=== PATIENT | female | born 1930 | race African-American/Black ===

== ENCOUNTER 2017-04-13 10:25 | Emergency (ER) | payer MEDICARE, BC ==
[2017-04-13] MEDS ORDERED: Mag-Al 1200 mg/1200 mg/30 ML UDCUP ONE (10:53)
[2017-04-13] MEDS ORDERED: Famotidine 20 MG TAB ONE (10:53)
[2017-04-13] MEDS ORDERED: Lidocaine Viscous Sol 2% 15 ml UD Cup ONE (10:53)
[2017-04-13 11:16] LABS: #Basophils 0.1 thou/uL (0.0-0.2); #Eosinphils 0.1 thou/uL (0.0-0.7); #Lymphocytes 1.8 thou/uL (1.20-3.40); #Monocytes 0.4 thou/uL (0.11-0.59); #Neutrophils 2.9 thou/uL (1.40-6.50); %Basophils 1.9 % (0.0-1.0); %Eosinophils 2.3 % (0.0-10.0); %Lymphocytes 33.5 % (21.0-51.0); %Monocytes 6.9 % (0.0-10.0); Hematocrit 46.3 % (36.0-47.0); Mean Platelet Volume 11.8 fL (7.4-10.4); Red Blood Cell (RBC) Count 5.24 mill/uL (4.20-5.40); White Blood Cell (WBC) Count 5.3 thou/uL (4.8-10.8)
[2017-04-13 11:51] LABS: ALT (SGPT) 14 U/L (8-55); AST (SGOT) 18 U/L (5-34); Alkaline Phosphatase 87 U/L (40-150); Anion Gap 16 mmol/L (10-20); BUN (Urea Nitrogen) 22 mg/dL (9.8-20.1); Bilirubin, Total 1.6 mg/dL (0.2-1.2); Calc. Creatinine Clearance 0 mL/min (70-130); Calcium 9.4 mg/dL (7.8-10.44); Carbon Dioxide 17 mmol/L (23-31); Chloride 108 mmol/L (98-107); Estimated GFR-MDRD 53; Globulin 3.7 g/dL (2.4-3.5); Lipase 10 U/L (8-78); Protein, Total 7.3 g/dL (6.0-8.3)
== END 2017-04-13 12:54 | disposition home or self-care (01) ==
LOC: ERS 10:25
DX: K21.9 Gastro-esophageal reflux disease without esophagitis (principal); I11.0 Hypertensive heart disease with heart failure; I50.9 Heart failure, unspecified; Z87.891 Personal history of nicotine dependence
CPT/HCPCS: 36415; 80053; 83690; 85025; 99284

== ENCOUNTER 2017-04-17 03:00 | Observation (INO) | payer MEDICARE, BC ==
[2017-04-17] MEDS ORDERED: Furosemide 40 MG/4 ML VIAL ONE (03:57)
[2017-04-17] MEDS ORDERED: Mag-Al 1200 mg/1200 mg/30 ML UDCUP ONE (03:57)
[2017-04-17] MEDS ORDERED: Pantoprazole 40 MG VIAL ONE (03:58)
[2017-04-17] MEDS ORDERED: Lidocaine Viscous Sol 2% 15 ml UD Cup ONE (03:58)
[2017-04-17 04:04] LABS: ALT (SGPT) 15 U/L (8-55); AST (SGOT) 20 U/L (5-34); Alkaline Phosphatase 103 U/L (40-150); Anion Gap 16 mmol/L (10-20); BUN (Urea Nitrogen) 26 mg/dL (9.8-20.1); Bilirubin, Total 2.1 mg/dL (0.2-1.2); CK (CPK) 48 U/L (29-168); Calc. Creatinine Clearance 0 mL/min (70-130); Calcium 9.3 mg/dL (7.8-10.44); Carbon Dioxide 23 mmol/L (23-31); Chloride 105 mmol/L (98-107); Estimated GFR-MDRD 44; Globulin 3.8 g/dL (2.4-3.5); Lipase 12 U/L (8-78); Protein, Total 7.3 g/dL (6.0-8.3)
[2017-04-17 04:10] LABS: PTT 35.1 SEC (22.9-36.1); Prothrombin Time 17.1 SEC (12.0-14.7)
[2017-04-17 04:17] LABS: #Basophils 0.1 thou/uL (0.0-0.2); #Eosinphils 0.2 thou/uL (0.0-0.7); #Lymphocytes 1.4 thou/uL (1.20-3.40); #Monocytes 0.4 thou/uL (0.11-0.59); #Neutrophils 3.2 thou/uL (1.40-6.50); %Basophils 1.2 % (0.0-1.0); %Eosinophils 2.9 % (0.0-10.0); %Lymphocytes 27.4 % (21.0-51.0); %Monocytes 6.9 % (0.0-10.0); Hematocrit 44.2 % (36.0-47.0); Mean Platelet Volume 12.9 fL (7.4-10.4); Red Blood Cell (RBC) Count 4.96 mill/uL (4.20-5.40); White Blood Cell (WBC) Count 5.3 thou/uL (4.8-10.8)
[2017-04-17 04:20] LABS: Troponin I 0.067 ng/mL (< 0.028)
[2017-04-17] MEDS ORDERED: Nitroglycerin 2% Ointment 1 INCH/1 GM Packet ONE (05:14)
[2017-04-17 06:43] VITALS: BMI 39.4
[2017-04-17 07:24] LABS: Troponin I 0.084 ng/mL (< 0.028)
[2017-04-17] MEDS ORDERED: Milk Of Magnesia 30 ML UDCUP PO PRN (08:10)
[2017-04-17] MEDS ORDERED: Mag-Al 1200 mg/1200 mg/30 ML UDCUP PO PRN (08:10)
[2017-04-17] MEDS ORDERED: Acetaminophen 325 MG TAB PO PRN (08:10)
[2017-04-17] MEDS ORDERED: Zolpidem Tartrate 5 MG TAB PO PRN (08:10)
[2017-04-17] MEDS ORDERED: Ondansetron ODT 4 MG TAB PO PRN (08:10)
[2017-04-17] MEDS ORDERED: Ondansetron HCl/PF 4 MG/2 ML Vial IVP PRN (08:10)
[2017-04-17] MEDS ORDERED: Senokot 8.6 MG TAB PO PRN (08:10)
[2017-04-17] MEDS ORDERED: Loperamide HCl 2 MG CAP PO PRN (08:10)
[2017-04-17] MEDS ORDERED: Azelastine 137 MCG/Spray 30 ML NS PRN ×2 (08:13→08:30)
[2017-04-17] MEDS ORDERED: Non-Formulary Item 1 EACH (Tizanidine Hcl [Zanaflex] 4 MG) PO PRN (08:13)
[2017-04-17] MEDS ORDERED: Calamine/Zinc Oxide 177 ML LOTION TP PRN (08:13)
[2017-04-17] MEDS ORDERED: Topiramate 100 MG TAB PO PRN (08:13)
[2017-04-17] MEDS ORDERED: ALPRAZolam 0.5 MG TAB PO PRN (08:13)
[2017-04-17] MEDS ORDERED: Nortriptyline HCl 25 MG CAP PO PRN (08:13)
--- NOTE | 2017-04-17 08:29 | RAD ---
SINGLE VIEW OF THE CHEST: HISTORY: Abdominal pain for a week. Fluid retention for three days. COMPARISON: 03/14/2017 FINDINGS: A single view of the chest shows an enlarged cardiomediastinal silhouette, which is stable in size. The pacemaker is unchanged in position. There is no evidence of consolidation, mass, or pleural ef fusion. IMPRESSION: No evidence of acute cardiopulmonary disease. POS: [facility]
[2017-04-17] MEDS ORDERED: tiZANidine HCl 4 MG TAB PO PRN (08:35)
[2017-04-17] MEDS: busPIRone HCl 5 MG TAB PO SCH ×2 (09:05→19:39)
[2017-04-17] MEDS: Carvedilol 6.25 MG TAB PO SCH ×2 (09:05→19:39)
[2017-04-17] MEDS: Metolazone 5 MG TAB PO SCH (09:05)
[2017-04-17] MEDS: Spironolactone 25 MG TAB PO SCH (09:06)
[2017-04-17 10:07] LABS: Troponin I 0.071 ng/mL (< 0.028)
--- NOTE | 2017-04-17 10:14 | HP ---
PRIMARY CARE PHYSICIAN: Dr. Nick Hardwick REASON FOR ADMISSION: Acute on chronic systolic and diastolic congestive heart failure. HISTORY OF PRESENT ILLNESS: An 86-year-old female who was recently admitted in our hospital on 03/07. This patient has underlying history of systolic and diastolic heart failure. Most recent e chocardiography on 01/2017 showed EF 30-35%, grade /3 diastolic dysfunction severe mitral regurgita tion and moderate tricuspid regurgitation. She came to the emergency room last night with increasin g shortness of breath, increasing lower extremity edema. The patient was feeling weight gain and sh e was feeling congested as well as fluid retention. The patient reports that she went out of town a nd she did not take her Lasix and she started feeling increasing edema in her legs. The patient was also having congestion in the upper abdomen and she was feeling nausea. She denies any vomiting. She denies any constipation or diarrhea, but after food she was feeling a little bit bloating and ep igastric discomfort. The patient also noticed more swollen legs and she also gained weight. She de nies any chest pain, orthopnea, or PND. She denies any palpitation, dizziness or syncope. She keshia es any UTI symptoms. She denies any melena, hematochezia. REVIEW OF SYSTEMS: The following complete review of systems was negative, unless otherwise mentioned in the HPI or below: Constitutional: Weight loss or gain, ability to conduct usual activities. Skin: Rash, itching. Eyes: Double vision, pain. ENT/Mouth: Nose bleeding, neck stiffness, pain, tenderness. Cardiovascular: Palpitations, dyspnea on exertion, orthopnea. Respiratory: Shortness of breath, wheezing, cough, hemoptysis, fever or night sweats. Gastrointestinal: Poor appetite, abdominal pain, heartburn, nausea, vomiting, constipation, or diarrhea. Genitourinary: Urgency, frequency, dysuria, nocturia. Musculoskeletal: Pain, swelling. Neurologic/Psychiatric: Anxiety, depression. Allergy/Immunologic: Skin rash, bleeding tendency. Please see my HPI for pertinent positive and negative. All other review of systems reviewed and neg ative except as mentioned in the HPI. 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 PAST PSYCHIATRIC HISTORY: Anxiety and depression. PAST SURGICAL HISTORY: Abdominal hysterectomy, bilateral salpingo-oophorectomy, left total hip arth roplasty, right total knee arthroplasty in 2006 and then left total knee replacement in 2008, catara ct surgery in the right eye, cholecystectomy in 1998, incisional hernia repair in 1998, bilateral kn ee arthroscopic surgery in 1993 and 1995, defibrillator placement, lumpectomy. SOCIAL HISTORY: The patient drinks alcohol socially, very rarely. She is a former smoker. She valentin t smoking more than 10 years ago. She smoked about 20 years in her life. She denies any current il licit drug abuse. She lives at home. FAMILY HISTORY: Positive for breast cancer as well as lung cancer in multiple female family members . Prostate cancer in male family members. ALLERGIES: MORPHINE and LISINOPRIL. CURRENT HOME MEDICATIONS: Xanax 0.5 mg p.o. t.i.d. p.r.n., aspirin 81 mg p.o. daily, Lipitor 40 mg p.o. at bedtime, azelastine nasal spray p.r.n., calamine lotion p.r.n., Coreg 6.25 mg p.o. b.i.d., F lonase nasal spray daily, Lasix 40 mg p.o. daily, [place] 1 tablet q.8 h. p.r.n., DuoNeb q.6 hourly p. r.n., nortriptyline 25 mg p.o. at bedtime p.r.n., Zofran 4 mg q.8 h. p.r.n., Protonix 20 mg p.o. rylan ly, Aldactone 25 mg p.o. daily, topiramate 100 mg p.o. b.i.d., BuSpar 5 mg p.o. b.i.d., Zanaflex 4 m g q.8 hourly p.r.n. PHYSICAL EXAMINATION: VITAL SIGNS: On arrival, blood pressure 149/102, pulse 193, respiratory rate 18, temperature 97.8, saturation 97% on room air, weight 106.1 kilograms. GENERAL: The patient is currently alert, awake, no obvious acute distress. HEENT: Head; normocephalic, atraumatic. Eyes: Pupils round, reactive to light. Extraocular muscl es intact. ENT: Oropharynx within normal limits. Moist mucous membranes. No oral lesions. No ph aryngeal erythema, no exudates. NECK: Supple, no obvious JVD noted. No thyromegaly, no carotid bruit. LUNGS: Air entry reduced at the base. No obvious rhonchi or rales noted. CARDIAC: S1, S2 regular, systolic murmur noted parasternal, no gallop, no rub. ABDOMEN: Obesity limiting examination. No organomegaly, no mass, no peritoneal sign, no suprapubic tenderness. BACK: Unremarkable, no CVA tenderness. EXTREMITIES: Upper extremity passive movement of all joints are normal. Lower extremities: Bilate ral lower extremity pitting edema noted. Good peripheral pulsation. No erythema. SKIN: No skin rash. HEMATOLOGICAL: No lymphadenopathy. PSYCHIATRIC: Normal affect. NEUROLOGIC: Nonfocal examination. The patient moves all 4 limbs. Speech normal, no focal neurolog ical deficit noted. SIGNIFICANT LABS: EKG based on my review, incomplete right bundle branch block pattern, nonspecific ST-T changes. Chest x-ray based on my review, cardiomegaly, no acute cardiopulmonary process. CBC: WBC 5.3, hemoglobin 14.1, platelet 85. INR 1.4. BMP: Sodium 140, potassium 4.0, chloride 10 5, carbon dioxide 23, anion gap 16, BUN 26, creatinine 1.37, glucose 121, calcium 9.3. LFTs: AST 20, ALT 15, alkaline phosphatase 103, albumin 3.5, CK 48, CK-MB 1.7, troponin I 0.067. B [employer] PERSON 2130.7. Lipase 12. ASSESSMENT AND PLAN: 1. Acute on chronic systolic and diastolic congestive heart failure exacerbation. This patient has bilateral lower extremity edema, cardiomegaly, elevated BNP, pulmonary vascular congestion based on examination. This patient has most recent echocardiography in January, which showed ejection fraction 30-35% with severe mitral regurgitation and tricuspid regurgitation. At this point, the patient wi ll require admission and her congestive heart failure exacerbation is because of her noncompliance w ith Lasix therapy. I discussed with the patient about heart failure education, fluid restriction, s alt restriction and medication compliance. Today I will give her Lasix 40 mg IV b.i.d. along with Z aroxolyn 5 mg p.o. daily and we will repeat the dose again tomorrow and will consider discharging he r home tomorrow after morning therapy. We will continue fluid restriction 1500 mL per day. We will continue Coreg 6.25 mg p.o. b.i.d. The patient is not on JASMEET inhibitor because of allergic reaction . We will continue Aldactone 25 mg p.o. daily. If her blood pressure permits, then we will conside r outpatient basis hydralazine mononitrate therapy. 2. Epigastric abdominal discomfort, most likely related with passive congestion in the liver. 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 At this point, the patient will need symptomatic treatment with Protonix 40 mg p.o. daily and Zofran on p.r.n. basis. 3. Elevated troponin, likely due to chronic demand ischemia. We will do serial cardiac enzymes. 4. Chronic kidney disease stage 3. We will monitor renal function and will repeat BMP and magnesiu m tomorrow. 5. Thrombocytopenia. 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 She has mild coagulopathy and low normal albumin as well. 6. Dyslipidemia. We will continue Lipitor 40 mg p.o. at bedtime. 7. Anxiety and depression. We will continue Xanax 0.5 mg p.o. t.i.d. p.r.n., nortriptyline 25 mg p .o. at bedtime p.r.n., buspirone 5 mg p.o. b.i.d. 8. Asthma/chronic obstructive pulmonary disease. We will continue DuoNeb q.6 hourly p.r.n., Flonas e nasal spray and azelastine nasal spray daily. 9. Morbid obesity with body mass index 39, weight loss education given. Healthy lifestyle measures discussed with the patient. 10. Deep venous thrombosis prophylaxis not needed because we are expecting discharge in 24 hours. 11. Gastrointestinal prophylaxis. Patient is already on Protonix therapy. 12. CODE STATUS: The patient is full code. Disposition plan based on clinical course. Tomorrow we will repeat CBC, BMP, BNP, uric acid, magnes ium and if everything is unremarkable, then the patient will be discharged tomorrow morning.
[2017-04-17] MEDS ORDERED: Furosemide 40 MG/4 ML VIAL SLOW IVP SCH ×2 (14:00)
[2017-04-17] MEDS: Fluticasone Propionate Nasal Spray 16 gm Bottle NASAL SCH (14:23)
[2017-04-17] MEDS ORDERED: Furosemide 40 MG TAB PO SCH (17:30)
[2017-04-17] MEDS: Furosemide 40 MG TAB PO SCH (19:39)
[2017-04-17] MEDS: Atorvastatin Calcium 40 MG TAB PO SCH (19:40)
[2017-04-18 05:56] LABS: Hematocrit 47.8 % (36.0-47.0); Mean Platelet Volume 12.9 fL (7.4-10.4); Red Blood Cell (RBC) Count 5.45 mill/uL (4.20-5.40); White Blood Cell (WBC) Count 4.6 thou/uL (4.8-10.8)
[2017-04-18 05:58] LABS: Anion Gap 17 mmol/L (10-20); BUN (Urea Nitrogen) 27 mg/dL (9.8-20.1); Calc. Creatinine Clearance 50 mL/min (70-130); Calcium 9.5 mg/dL (7.8-10.44); Carbon Dioxide 22 mmol/L (23-31); Chloride 101 mmol/L (98-107); Estimated GFR-MDRD 43; Uric Acid 13.6 mg/dL (2.6-6.0)
[2017-04-18 06:00] LABS: Neutrophil 40 % (42-75)
[2017-04-18 08:04] LABS: Hematocrit 46.1 % (36.0-47.0); Mean Platelet Volume 12.3 fL (7.4-10.4); Neutrophil 38 % (42-75); Reactive Lymphocytes 5 % (0-10); Red Blood Cell (RBC) Count 5.24 mill/uL (4.20-5.40); White Blood Cell (WBC) Count 5.2 thou/uL (4.8-10.8)
[2017-04-18] MEDS ORDERED: Potassium Chloride 20 MEQ TAB PO SCH (08:15)
[2017-04-18] MEDS: Fluticasone Propionate Nasal Spray 16 gm Bottle NASAL SCH (08:46)
[2017-04-18] MEDS: busPIRone HCl 5 MG TAB PO SCH ×2 (08:47→20:22)
[2017-04-18] MEDS: Furosemide 40 MG TAB PO SCH ×2 (08:47→20:23)
[2017-04-18] MEDS: Spironolactone 25 MG TAB PO SCH (08:48)
[2017-04-18] MEDS: Famotidine 20 MG TAB PO SCH (08:48)
[2017-04-18] MEDS: Metolazone 5 MG TAB PO SCH (08:48)
[2017-04-18] MEDS: Carvedilol 6.25 MG TAB PO SCH ×2 (08:48→20:21)
--- NOTE | 2017-04-18 10:03 | PDOC.PN ---
- Subjective Encounter Start Date: 04/18/17 Encounter Start Time: 07:30 pt feels better, has less edema, does not have any bleeding from any site - Objective Resuscitation Status: Resuscitation Status FULL:Full Resuscitation MAR Reviewed: Yes Vital Signs & Weight: Vital Signs (12 hours) Temp Pulse Resp BP BP BP Pulse Ox 04/18/17 08:48 116/89 04/18/17 07:56 98.0 F 86 18 04/18/17 07:35 97.3 F L 83 18 116/89 97 04/18/17 03:18 98.0 F 86 18 106/67 93 L 04/17/17 23:18 97.6 F 82 18 133/85 100 Weight Admit Weight 244 lb 6.4 oz Weight 243 lb 9.6 oz I&O: 04/17/17 04/18/17 04/19/17 06:59 06:59 06:59 Intake Total 1290 Output Total 2350 Balance -1060 Result Diagrams: 04/18/17 07:28 04/18/17 05:12 Radiology Reviewed by me: Yes EKG Reviewed by me: Yes Phys Exam - Physical Examination Constitutional: NAD HEENT: PERRLA, moist MMs, sclera anicteric Neck: no JVD, supple Respiratory: no wheezing, no rales, no rhonchi Cardiovascular: RRR, no significant murmur, no rub Gastrointestinal: soft, non-tender, no distention, positive bowel sounds obesity+ Musculoskeletal: pulses present, edema present Neurological: non-focal, normal sensation, moves all 4 limbs Psychiatric: normal affect, A&O x 3 Skin: no rash, normal turgor Dx/Plan (1) Acute on chronic combined systolic and diastolic congestive heart failure Code(s): I50.43 - ACUTE ON CHRONIC COMBINED SYSTOLIC AND DIASTOLIC HRT FAIL Status: Acute (2) Epigastric abdominal pain Code(s): R10.13 - EPIGASTRIC PAIN Status: Resolved (3) Anxiety and depression Code(s): F41.8 - OTHER SPECIFIED ANXIETY DISORDERS Status: Chronic (4) Dyslipidemia Code(s): E78.5 - HYPERLIPIDEMIA, UNSPECIFIED Status: Chronic (5) HTN (hypertension) Code(s): I10 - ESSENTIAL (PRIMARY) HYPERTENSION Status: Chronic (6) Obesity (BMI 30-39.9) Code(s): E66.9 - OBESITY, UNSPECIFIED Status: Chronic (7) Thrombocytopenia Code(s): D69.6 - THROMBOCYTOPENIA, UNSPECIFIED Status: Chronic - Plan cont current plan of care * CHF is improved significantly * provided patient education about lasix and zaroxolyn use for edema * platelet count dropped fast, no bleeding, will get oncology opinion. check hepatitis and HIV profile and negative, will get abdomen US * if oncology clears, we may discharge later today or observe one more day and repeat CBC tomorrow * medication reviewed as below * symptomatic treatment. Review of Systems - Review of Systems Constitutional: negative: Fever, Chills, Sweats, Weakness, Malaise, Other ENT: negative: Ear Pain, Ear Discharge, Nose Pain, Nose Discharge, Nose Congestion, Mouth Pain, Mouth Swelling, Throat Pain, Throat Swelling, Other Respiratory: negative: Cough, Dry, Shortness of Breath, Hemoptysis, SOB with Excertion, Pleuritic Pain, Sputum, Wheezing Cardiovascular: Edema. negative: Chest Pain, Palpitations, Orthopnea, Paroxysmal Noc. Dyspnea, Light Headedness, Other Gastrointestinal: negative: Nausea, Vomiting, Abdominal Pain, Diarrhea, Constipation, Melena, Hematochezia, Other Genitourinary: negative: Dysuria, Frequency, Incontinence, Hematuria, Retention , Other Musculoskeletal: negative: Neck Pain, Shoulder Pain, Arm Pain, Back Pain, Hand Pain, Leg Pain, Foot Pain, Other Skin: negative: Rash, Lesions, Miguel, Bruising, Other Neurological: negative: Weakness, Numbness, Incoordination, Change in Speech, Confusion, Seizures, Other - Medications/Allergies Allergies/Adverse Reactions: Allergies Allergy/AdvReac Type Severity Reaction Status Date / Time lisinopril Allergy Mild Verified 04/17/17 06:15 morphine Allergy Verified 04/17/17 06:15 Medications: Current Medications Acetaminophen (Tylenol) 650 mg PO Q4H PRN PRN Reason: Headache/Fever or Pain Al Hydroxide/Mg Hydroxide (Maalox) 30 ml PO Q6H PRN PRN Reason: Heartburn or Indigestion Albuterol/Ipratropium (Duoneb) 3 ml NEB QIDPRN PRN PRN Reason: SOB &/or Wheezing Alprazolam (Xanax) 0.5 mg PO TID PRN PRN Reason: Anxiety Last Admin: 04/17/17 20:59 Dose: 0.5 mg Aspirin (Aspirin Chewable) 81 mg PO DAILY [facility] Last Admin: 04/18/17 08:48 Dose: 81 mg Atorvastatin Calcium (Lipitor) 40 mg PO HS [facility] Last Admin: 04/17/17 19:40 Dose: 40 mg Azelastine HCl (Azelastine) 0 ml NS PRN PRN PRN Reason: RHINITIS Buspirone HCl (Buspar) 5 mg PO BID [facility] Last Admin: 04/18/17 08:47 Dose: 5 mg Calamine/Zinc Oxide (Calamine Lotion) 5 ml TP PRN PRN PRN Reason: TICHING Carvedilol (Coreg) 6.25 mg PO BID [facility] Last Admin: 04/18/17 08:48 Dose: 6.25 mg Famotidine (Pepcid) 20 mg PO DAILY [facility] Last Admin: 04/18/17 08:48 Dose: 20 mg Fluticasone Propionate (Flonase Nasal [place]) 0 gm NASAL DAILY [facility] Last Admin: 04/18/17 08:46 Dose: 2 spr Furosemide (Lasix) 80 mg PO BID [facility] Last Admin: 04/18/17 08:47 Dose: 80 mg Loperamide HCl (Imodium) 2 mg PO PRN PRN PRN Reason: Diarrhea/Loose Stools Magnesium Hydroxide (Milk Of Magnesium) 30 ml PO DAILYPRN PRN PRN Reason: Constipation Metolazone (Zaroxolyn) 5 mg PO 0830 [facility] Last Admin: 04/18/17 08:48 Dose: 5 mg Nortriptyline HCl (Pamelor) 25 mg PO HS PRN PRN Reason: sleep Ondansetron HCl (Zofran Odt) 4 mg PO Q6H PRN PRN Reason: Nausea/Vomiting Ondansetron HCl (Zofran) 4 mg IVP Q6H PRN PRN Reason: Nausea/Vomiting Senna (Senokot) 2 tab PO HSPRN PRN PRN Reason: Constipation Sodium Chloride (Flush - Normal Saline) 10 ml IVF Q12HR [facility] Last Admin: 04/18/17 08:52 Dose: Not Given Sodium Chloride (Flush - Normal Saline) 10 ml IVF PRN PRN PRN Reason: Saline Flush Spironolactone (Aldactone) 25 mg PO DAILY [facility] Last Admin: 04/18/17 08:48 Dose: 25 mg Tizanidine HCl (Zanaflex) 4 mg PO Q8H PRN PRN Reason: Pain Topiramate (Topamax) 100 mg PO BID PRN PRN Reason: migraines Zolpidem Tartrate (Ambien) 5 mg PO HSPRN PRN PRN Reason: Insomnia
[2017-04-18 14:08] LABS: Hematocrit 47.8 % (36.0-47.0)
[2017-04-18 14:32] LABS: #Basophils 0.1 thou/uL (0.0-0.2); #Eosinphils 0.3 thou/uL (0.0-0.7); #Lymphocytes 2.3 thou/uL (1.20-3.40); #Monocytes 0.7 thou/uL (0.11-0.59); #Neutrophils 2.6 thou/uL (1.40-6.50); %Basophils 1.1 % (0.0-1.0); %Eosinophils 4.8 % (0.0-10.0); %Lymphocytes 38.8 % (21.0-51.0); %Monocytes 12.3 % (0.0-10.0); Anisocytosis SLIGHT = 6-15 cells (100X) (0-5/hpf); Mean Platelet Volume 7.9 fL (7.4-10.4)
--- NOTE | 2017-04-18 14:38 | EKG ---
Test Reason : ABD PAIN Blood Pressure : / mmHG Vent. Rate : 098 BPM Atrial Rate : 098 BPM P-R Int : 172 ms QRS Dur : 158 ms QT Int : 440 ms P-R-T Axes : 062 -75 094 degrees QTc Int : 561 ms Normal sinus rhythm with sinus arrhythmia Left axis deviation Right bundle branch block Inferior infarct , age undetermined T wave abnormality, consider lateral ischemia Abnormal ECG Confirmed by GILBERTO MORIN, MAT ([id number]), script editor TONEY MCDONOUGH ([id number]) on 04/18/2017 2:38:20 PM Referred By: Confirmed By:MAT MACIAS MD
--- NOTE | 2017-04-18 16:53 | ULT ---
ULTRASOUND ABDOMEN COMPLETE: Date: 04/18/17 HISTORY: 86-year-old female with thrombocytopenia. FINDINGS: Liver: Normal size and echogenicity. Gallbladder: Surgically absent. Common duct: Varies in caliber from 6-9 mm. The dilation is probably due to the status post cholecys tectomy. Spleen: The spleen is small, measuring approximately 9 x 3 x 3 cm. Pancreas: Poorly visualized. Kidneys: No hydronephrosis. Abdominal aorta: No aneurysm. Inferior vena cava: Unremarkable. IMPRESSION: 1. Status post cholecystectomy. 2. No splenomegaly. 3. No acute findings. LUIS Joseph POS: [facility]
--- NOTE | 2017-04-18 16:54 | ULT ---
ULTRASOUND WITH DOPPLER DUPLEX VENOUS LOWER EXTREMITIES BILATERAL: HISTORY: 86-year-old female with bilateral lower extremity edema. TECHNIQUE: Color flow Doppler, spectral waveform analysis of pulsed Doppler, and teixeira-scale imaging with compre ssion and augmentation, were used to evaluate the bilateral common femoral, femoral, popliteal, post erior tibial, and superficial femoral, veins; and the proximal portions of the profunda femoral and greater saphenous, veins. FINDINGS: There is normal compressibility, demonstration of blood flow by color Doppler and pulsed Doppler, an d response to augmentation, in all interrogated veins. IMPRESSION: Negative. No deep vein thrombosis in the bilateral lower extremities. jn[] POS: [facility]
--- NOTE | 2017-04-18 16:57 | ULT ---
ULTRASOUND WITH DOPPLER DUPLEX VENOUS RIGHT UPPER EXTREMITY: Date: 04/18/17 HISTORY: 86-year-old female with right upper extremity soft tissue swelling. TECHNIQUE: Patel scale with compression and release, color flow, and spectral analysis of major veins of right u pper extremity. FINDINGS: The proximal portion of the cephalic vein is very small in caliber and difficult to visualize. All o ther veins have normal compressibility and demonstration of blood flow: brachial, ulnar, radial, bas ilic, axillary, subclavian, and internal jugular. There is soft tissue edema in the right upper extr emity. IMPRESSION: 1. Soft tissue edema of the right upper extremity. 2. Right cephalic vein very small and poorly visualized. 3. Otherwise no evidence of thrombosis of right upper extremity veins. POS: [facility]
--- NOTE | 2017-04-18 19:41 | CON ---
DATE OF CONSULTATION: 04/18/2017 HISTORY OF PRESENT ILLNESS: Ms. Guerrero is an 86-year-old female, who was admitted for observation b ecause of shortness of breath and likely exacerbation of congestive heart failure. She was complain ing of shortness of breath as well as increased edema and admits to having been off her Lasix over t he last few days. She had gained weight at home and therefore was admitted to observation. On admi ssion, her platelet count was 85,000. Metolazone was started a few hours after the initial platelet count and her platelet has gone down to 10,000 on the day of the consult. She denies any bleeding. She has never had a blood clot. She is complaining of some right upper extremity pain at the IV s ite where she has had some swelling. The IV was removed yesterday and she states the swelling has g mandy slightly worse. She does not think she has been exposed to any heparin and has never been yessy d in the past that she had thrombocytopenia. She denies any hematuria, hematochezia, bleeding gums, or coughing up of any blood. PAST MEDICAL HISTORY: 1. Congestive heart failure with an ejection fraction of 30% to 35%. 2. Severe mitral regurgitation and moderate tricuspid regurgitation. 3. Hyperlipidemia. 4. Obesity. 5. Osteoarthritis. 6. History of left ventricular thrombus. At this time, she was diagnosed with congestive heart jonny yanira, she did complete many months of Coumadin and currently is off the anticoagulation. 7. Paroxysmal atrial fibrillation. 8. History of small bowel obstruction in 2008. 9. History of breast cancer, status post lumpectomy and chemoradiation. 10. Allergic rhinitis. 11. Gastroesophageal reflux disease. CURRENT MEDICATIONS: 1. Xanax p.r.n. 2. Aspirin 81 mg p.o. q. day. 3. Atorvastatin 40 mg p.o. at bedtime. 4. Maalox p.r.n. 5. Tylenol p.r.n. 6. BuSpar 5 mg p.o. b.i.d. 7. Calamine lotion topically. 8. Coreg 6.25 mg p.o. b.i.d. 9. Pepcid 20 mg p.o. q. day. 10. Fluticasone nasal spray. 11. Lasix 80 mg p.o. b.i.d. 12. Imodium 2 mg p.o. q.4 hours p.r.n. 13. Milk of Magnesia 30 mL p.o. q. day. 14. Zaroxolyn 5 mg p.o. q. day. 15. Nortriptyline 25 mg p.o. at bedtime p.r.n. 16. Zofran 4 mg p.o. q.6 hours p.r.n. 17. Senokot p.r.n. 18. Aldactone 25 mg p.o. q. day. 19. Tizanidine 4 mg p.o. q.8 hours p.r.n. 20. Topamax 100 mg p.o. b.i.d. 21. Ambien 5 mg p.o. at bedtime p.r.n. ALLERGIES: LISINOPRIL and MORPHINE. SOCIAL HISTORY: She [place] in town and is here alone. Denies any current tobacco or alcohol use. S he is a very poor historian. FAMILY HISTORY: Noncontributory. REVIEW OF SYSTEMS: Otherwise, 10-point review of systems is negative. Please see the history of pr esent illness. PHYSICAL EXAMINATION: VITAL SIGNS: Temperature 97.6, pulse 77, respirations 18, blood pressure 112/81, O2 sat 100% on carito m air. GENERAL: She is quite obese, sitting in a recliner, in no acute distress. HEENT: Extraocular muscles are intact. Sclerae are anicteric. There are no scleral hemorrhages. Her oral cavity is clear. NECK: Supple, without lymphadenopathy or thyromegaly. CARDIOVASCULAR: Regular rhythm. A defibrillator is in place without any ecchymoses. LUNGS: Clear to auscultation currently. ABDOMEN: Hypoactive bowel sounds. Soft, nontender, nondistended. She is morbidly obese. EXTREMITIES: Bilateral 1+ pitting edema in the lower extremities, although her legs are elevated cu rrently, they are nontender. Her right upper extremity has an IV infiltration site which is indurat ed, but not red and somewhat swollen in the upper part of the right arm, it is tender to touch. LABORATORY AND X-RAY FINDINGS: White blood cell count 5.2, hemoglobin 14.3, platelets 10. Just ove r 24 hours ago on admission, white blood cell count 5.3, hemoglobin 14.1, platelets 85. Looking andrea k over the last year, her platelets have ranged anywhere from 80,000-125,000. INR 1.4, PTT 35. Sod ium 137, potassium 3.4, chloride 101, CO2 of 22, BUN 27, creatinine 1.4, GFR 43, glucose 108, uric a luis 13.6, calcium 9.5, magnesium 2.0. Troponin I 0.071. BNP 8. ASSESSMENT: Ms. Guerrero is an 86-year-old female with; 1. Congestive heart failure, acute exacerbation somewhat resolved. 2. Acute onset thrombocytopenia in the setting of chronic thrombocytopenia with no heparin exposure that we can see. 3. Asymptomatic without any active bleeding. PLAN: 1. Since metolazone was recently started and does cause thrombocytopenia, this could be the culprit and cause of the platelets to drop so acutely. We will stop this as well as stop her aspirin and c heck a stat CBC. 2. She has no signs of bleeding at this time, but if her platelets continue to decline, it would be reasonable to give her platelet transfusion. 3. She has an abdominal ultrasound ordered by the primary team and we will add on lower extremity D oppler as well as right upper extremity ultrasound since the right upper extremity is swollen. Obvi ously, if there is DVT, there be concerned for clotting disorder such as HIT. 4. I think that HIT is unlikely in this setting, given that the platelets are dropping much too valentin ckly and I cannot find where she was exposed to heparin. We will hold off on any anticoagulation at this time. 5. Assuming that this is a chronic thrombocytopenia with an acute exacerbation secondary to drug. I think she can be discharged as long as platelets are starting to go up after the metolazone is hel d. 6. She may need chronic follow up with our clinic given that her platelets are abnormal chronically over the last several years. This may in fact also be medication induced, but we can follow her up as an outpatient if needed. 7. We will continue to follow with you.
[2017-04-18] MEDS: Atorvastatin Calcium 40 MG TAB PO SCH (20:20)
[2017-04-19] MEDS: Carvedilol 6.25 MG TAB PO SCH (08:27)
[2017-04-19] MEDS: Fluticasone Propionate Nasal Spray 16 gm Bottle NASAL SCH (08:27)
[2017-04-19] MEDS: busPIRone HCl 5 MG TAB PO SCH (08:28)
[2017-04-19] MEDS: Spironolactone 25 MG TAB PO SCH (08:28)
[2017-04-19] MEDS: Furosemide 40 MG TAB PO SCH (08:28)
[2017-04-19] MEDS: Famotidine 20 MG TAB PO SCH (08:28)
[2017-04-19] MEDS ORDERED: FLU VACC TS2017-18 (>65YR) 0.5 ML SYRINGE IM ONE (09:00)
[2017-04-19 10:14] LABS: #Basophils 0.1 thou/uL (0.0-0.2); #Eosinphils 0.2 thou/uL (0.0-0.7); #Lymphocytes 1.5 thou/uL (1.20-3.40); #Monocytes 0.6 thou/uL (0.11-0.59); #Neutrophils 2.3 thou/uL (1.40-6.50); %Basophils 1.5 % (0.0-1.0); %Lymphocytes 32.6 % (21.0-51.0); %Monocytes 13.3 % (0.0-10.0); Hematocrit 46.6 % (36.0-47.0); Mean Platelet Volume 12.4 fL (7.4-10.4); Red Blood Cell (RBC) Count 5.35 mill/uL (4.20-5.40); White Blood Cell (WBC) Count 4.6 thou/uL (4.8-10.8)
[2017-04-19 10:32] LABS: Anion Gap 16 mmol/L (10-20); BUN (Urea Nitrogen) 31 mg/dL (9.8-20.1); Calc. Creatinine Clearance 42 mL/min (70-130); Calcium 9.8 mg/dL (7.8-10.44); Carbon Dioxide 27 mmol/L (23-31); Chloride 95 mmol/L (98-107); Estimated GFR-MDRD 37
[2017-04-19 11:40] VITALS: TEMP 97.3
[2017-04-19] MEDS ORDERED: Potassium Chloride 20 MEQ TAB PO SCH (14:45)
--- NOTE | 2017-04-19 14:47 | PDOC.PN ---
- Subjective Encounter Start Date: 04/19/17 Encounter Start Time: 14:44 Ms. Guerrero does not have any complaints. She is breathing better. - Objective Resuscitation Status: Resuscitation Status FULL:Full Resuscitation MAR Reviewed: Yes Vital Signs & Weight: Vital Signs (12 hours) Temp Pulse Resp BP Pulse Ox 04/19/17 11:34 97.3 F L 70 16 111/71 95 04/19/17 07:58 98.0 F 80 16 04/19/17 07:17 98.0 F 80 16 112/85 98 Weight Admit Weight 244 lb 6.4 oz Weight 231 lb 9.6 oz I&O: 04/18/17 04/19/17 04/20/17 06:59 06:59 06:59 Intake Total 1290 760 Output Total 2350 3450 Balance -1060 -2690 Result Diagrams: 04/19/17 10:07 04/19/17 10:07 Phys Exam - Physical Examination HEENT: PERRLA Respiratory: no wheezing, no rales, no rhonchi, clear to auscultation bilateral Cardiovascular: RRR, no significant murmur, no rub Gastrointestinal: soft, non-tender, positive bowel sounds Musculoskeletal: edema present 1+ edema Dx/Plan (1) Acute on chronic combined systolic and diastolic congestive heart failure Code(s): I50.43 - ACUTE ON CHRONIC COMBINED SYSTOLIC AND DIASTOLIC HRT FAIL Status: Acute (2) Dyslipidemia Code(s): E78.5 - HYPERLIPIDEMIA, UNSPECIFIED Status: Chronic (3) HTN (hypertension) Code(s): I10 - ESSENTIAL (PRIMARY) HYPERTENSION Status: Chronic (4) Obesity (BMI 30-39.9) Code(s): E66.9 - OBESITY, UNSPECIFIED Status: Chronic (5) Thrombocytopenia Code(s): D69.6 - THROMBOCYTOPENIA, UNSPECIFIED Status: Chronic - Plan * Acute on chronic systolic and diastolic heart failure- much improved * She has diuresed well * Platelet count has recovered * Creatinine is noted to be elevated- from Lasix- Hold lasix tomorrow, and restart usual dose on Thursday, check BMP by end of up coming week * Will replace Potassium, and stable for discharge.
[2017-04-19 15:41] VITALS: BP 129/78
--- NOTE | 2017-04-19 22:08 | DIS ---
DATE OF ADMISSION: 04/17/2017 DATE OF DISCHARGE: 04/19/2017 PRIMARY CARE PROVIDER: Dr. Hardwick at [facility] DISCHARGE DISPOSITION: Home. PRIMARY DISCHARGE DIAGNOSES: 1. Acute on chronic combined systolic and diastolic failure. 2. Medical noncompliance. 3. Hypertension. 4. Dyslipidemia. 5. Obesity. 6. Paroxysmal atrial fibrillation. 7. Thrombocytopenia secondary to metolazone. DISCHARGE MEDICATIONS: Include Lasix 40 mg twice a day, she is to start this on 04/21/2017. Zanafl ex 4 mg q.8 hours as needed, buspirone 5 mg twice daily, topiramate 100 mg twice daily, Aldactone 25 mg daily, Protonix 20 mg daily, Zofran 4 mg q.8 hours as needed, nortriptyline 25 mg at bedtime, al buterol sulfate nebs q.i.d. as needed, [place] 10/325 one tablet q.4 hours as needed, Flonase nasal sp ray daily, carvedilol 6.25 mg twice daily, Astelin nasal spray daily, Lipitor 40 mg at bedtime, aspi rin 81 mg daily and alprazolam 0.5 mg t.i.d. as needed. PROCEDURES DONE DURING ADMISSION: The patient had an abdominal ultrasound, which was essentially ne gative and also lower extremity venous Doppler, which was negative for DVT. HOSPITAL COURSE: Ms. Guerrero is a pleasant 86-year-old female who was admitted after noticing increa sing lower extremity edema as well as feeling congested. The patient was found to be in acute on ch ronic diastolic as well as systolic heart failure. The patient admits to not taking her Lasix at ti me, especially when she has to go out and has admitted to a little bit of dietary indiscretion as we ll. She was placed in observation and given Lasix and metolazone. She had a reaction with the METO LAZONE, which caused her platelets to drop from about 80,000 down to 24,000 and as low as 10,000. A fter withdrawal of the metolazone, her platelet count recovered. She is being instructed never to t jenna metolazone again. The patient's creatinine was slightly elevated due to the Lasix administratio n and she is to hold the Lasix tomorrow and then restarted on Thursday. Follow up with Dr. Ronen paez the end of next week and have a BMP drawn at that time. The patient was instructed on this.
== END 2017-04-19 16:22 | disposition home or self-care (01) ==
LOC: ERS 03:00 → 2SW 05:00
PROVIDERS: ADMIT Family Medicine; ATTEND Family Medicine
DX: I11.0 Hypertensive heart disease with heart failure (principal); I50.43 Acute on chronic combined systolic (congestive) and diastolic (congestive) heart failure; I42.9 Cardiomyopathy, unspecified; E78.5 Hyperlipidemia, unspecified; M19.90 Unspecified osteoarthritis, unspecified site; I48.0 Paroxysmal atrial fibrillation; J30.9 Allergic rhinitis, unspecified; K21.9 Gastro-esophageal reflux disease without esophagitis; G43.909 Migraine, unspecified, not intractable, without status migrainosus; F32.9 Major depressive disorder, single episode, unspecified; F41.9 Anxiety disorder, unspecified; E66.9 Obesity, unspecified; Z68.39 Body mass index [BMI] 39.0-39.9, adult; Z88.5 Allergy status to narcotic agent; Z88.8 Allergy status to other drugs, medicaments and biological substances; Z79.82 Long term (current) use of aspirin; Z79.01 Long term (current) use of anticoagulants; Z79.899 Other long term (current) drug therapy; Z87.891 Personal history of nicotine dependence; Z85.3 Personal history of malignant neoplasm of breast
CPT/HCPCS: 71010; 76700; 80048 ×2; 80053; 80074; 82550; 82553; 83690; 83735; 83880 ×2; 84484 ×2; 84550; 85007; 85025 ×4; 85027; 85610; 85730; 87389; 93005; 93798; 93970; 93971; 96374; 96375; 99285; G0008; G0378 ×2; Q2036; 36415; 36416; 90471; 90682; A4216; C9113; J1940

== ENCOUNTER 2017-06-05 14:26 | Emergency (ER) | payer MEDICARE, BC ==
[2017-06-05 15:55] LABS: #Basophils 0.1 thou/uL (0.0-0.2); #Eosinphils 0.2 thou/uL (0.0-0.7); #Lymphocytes 1.7 thou/uL (1.20-3.40); #Monocytes 0.4 thou/uL (0.11-0.59); #Neutrophils 1.7 thou/uL (1.40-6.50); %Basophils 1.9 % (0.0-1.0); %Eosinophils 4.4 % (0.0-10.0); %Lymphocytes 41.8 % (21.0-51.0); %Monocytes 10.5 % (0.0-10.0); Hematocrit 47.4 % (36.0-47.0); Mean Platelet Volume 11.4 fL (7.4-10.4); Red Blood Cell (RBC) Count 5.33 mill/uL (4.20-5.40); White Blood Cell (WBC) Count 4.1 thou/uL (4.8-10.8)
--- NOTE | 2017-06-05 15:55 | RAD ---
CHEST ONE VIEW 06/05/17 HISTORY: Dizziness. COMPARISON: 04/17/17. FINDINGS: The cardiac silhouette is magnified and enlarged. Pulmonary vasculature remains upper limits of josé antonio l. Mediastinum is midline with multilead left subclavian cardiac electronic device. No lobar consolid ation or pneumothorax are apparent. Metallic clips overlie the right axilla. The court monitor lead s overlie the chest. IMPRESSION: Cardiomegaly and borderline pulmonary vascular congestion, stable compared to the 04/17/17 exam. POS: [facility]
--- NOTE | 2017-06-05 16:03 | CT ---
CT HEAD NONCONTRAST 06/05/17 HISTORY: Headache. COMPARISON: 04/07/16. FINDINGS: There is no evidence of acute intracranial hemorrhage or infarct. Diffuse cortical atrophy and chroni c ischemic small vessel disease are again demonstrated. There is no mass effect or shift of midline s tructures. Calcification is present within the arterial structures of the brain base. The visualized paranasal sinuses remain well aerated. IMPRESSION: Atherosclerosis. Chronic type findings appear stable. No acute intracranial abnormalities are demonst rated on noncontrast CT head. POS: [facility]
[2017-06-05 16:11] LABS: Anisocytosis SLIGHT = 6-15 cells (100X) (0-5/hpf); Polychromasia SLIGHT = 2-3 cells (100X) (0-2/hpf); Target Cells SLIGHT = 2-5 cells (100X) (0-1/hpf)
[2017-06-05 16:14] LABS: ALT (SGPT) 16 U/L (8-55); AST (SGOT) 22 U/L (5-34); Alkaline Phosphatase 103 U/L (40-150); Anion Gap 16 mmol/L (10-20); BUN (Urea Nitrogen) 22 mg/dL (9.8-20.1); Bilirubin, Total 1.1 mg/dL (0.2-1.2); CK (CPK) 73 U/L (29-168); Calc. Creatinine Clearance 0 mL/min (70-130); Calcium 8.8 mg/dL (7.8-10.44); Carbon Dioxide 20 mmol/L (23-31); Chloride 106 mmol/L (98-107); Estimated GFR-MDRD 52; Globulin 3.4 g/dL (2.4-3.5); Protein, Total 6.8 g/dL (6.0-8.3)
[2017-06-05 16:18] LABS: Troponin I 0.016 ng/mL (< 0.028)
== END 2017-06-05 17:24 | disposition home or self-care (01) ==
LOC: ERS 14:26
DX: R42 Dizziness and giddiness (principal); R51 Headache; R60.0 Localized edema; K21.9 Gastro-esophageal reflux disease without esophagitis; I11.0 Hypertensive heart disease with heart failure; I50.9 Heart failure, unspecified; I25.10 Atherosclerotic heart disease of native coronary artery without angina pectoris; F41.9 Anxiety disorder, unspecified; Z87.891 Personal history of nicotine dependence
CPT/HCPCS: 36415; 70450; 71010; 80053; 82553; 83880; 84484; 85025; 93005; 94760

== ENCOUNTER 2017-06-16 17:53 | Inpatient (IN) | payer MEDICARE, BC ==
[2017-06-16 18:41] LABS: #Eosinphils 0.2 thou/uL (0.0-0.7); #Monocytes 0.4 thou/uL (0.11-0.59); #Neutrophils 1.9 thou/uL (1.40-6.50); %Eosinophils 4.2 % (0.0-10.0); %Lymphocytes 44.2 % (21.0-51.0); %Monocytes 8.3 % (0.0-10.0); Hematocrit 45.3 % (36.0-47.0); Mean Platelet Volume 9.8 fL (7.4-10.4); Red Blood Cell (RBC) Count 5.24 mill/uL (4.20-5.40); White Blood Cell (WBC) Count 4.6 thou/uL (4.8-10.8)
[2017-06-16 19:04] LABS: CK (CPK) 111 U/L (29-168); Lipase 14 U/L (8-78)
[2017-06-16 19:09] LABS: Troponin I 0.077 ng/mL (< 0.028)
[2017-06-16] MEDS ORDERED: Ondansetron ODT 4 MG TAB ONE ×2 (19:22→19:27)
--- NOTE | 2017-06-16 19:36 | RAD ---
AP VIEW CHEST 06/16/17 HISTORY: Shortness of breath. AP view chest is obtained on 06/16/17. Comparison made to previous exam from 06/05/17. AP view chest demonstrates cardiomegaly. Dual lead intracardiac defibrillator is present. Pulmonary v ascular congestion noted. No evidence of effusions, pneumonia or pneumothorax seen. IMPRESSION: Cardiomegaly. POS: [facility]
[2017-06-16] MEDS ORDERED: Furosemide 40 MG/4 ML VIAL ONE (20:53)
[2017-06-16 21:42] LABS: Troponin I 0.063 ng/mL (< 0.028)
--- NOTE | 2017-06-16 21:55 | PDOC.EVN ---
Event Note - Event Note Event Note: [id number] 1. Acute CHF exacerbation 2. HTN 3. Obesity 4. GERD plan: see orders
[2017-06-16 22:18] LABS: ALT (SGPT) 20 U/L (8-55); AST (SGOT) 29 U/L (5-34); Alkaline Phosphatase 135 U/L (40-150); Anion Gap 18 mmol/L (10-20); BUN (Urea Nitrogen) 25 mg/dL (9.8-20.1); Bilirubin, Total 2.6 mg/dL (0.2-1.2); Calc. Creatinine Clearance 0 mL/min (70-130); Calcium 8.9 mg/dL (7.8-10.44); Carbon Dioxide 19 mmol/L (23-31); Chloride 106 mmol/L (98-107); Estimated GFR-MDRD 37; Globulin 3.6 g/dL (2.4-3.5)
[2017-06-17] MEDS: ALPRAZolam 0.5 MG TAB PO PRN (00:22)
[2017-06-17 00:54] VITALS: BMI 39.9
[2017-06-17 01:28] LABS: Troponin I 0.065 ng/mL (< 0.028)
[2017-06-17] MEDS: Furosemide 40 MG/4 ML VIAL SLOW IVP SCH ×3 (03:05→18:27)
[2017-06-17 05:57] LABS: Troponin I 0.084 ng/mL (< 0.028)
[2017-06-17] MEDS: Ondansetron HCl/PF 4 MG/2 ML Vial IVP PRN (06:44)
--- NOTE | 2017-06-17 07:18 | HP ---
DATE OF ADMISSION: 06/16/2017 CHIEF COMPLAINT: Bilateral lower extremity swelling. HISTORY OF PRESENT ILLNESS: Patient is an 86-year-old female with past medical history of hypertension, CHF, morbid obesity, chronic systolic and diastolic heart failure, nonischemic cardiomyopathy, hyperlipidemia, osteoarthritis, paroxysmal atrial fibrillation, left ventricular thrombus history, history of breast CA, GERD, now came to the ER complaining of bilateral lower extremity swelling. Patient is having bilateral lower extremity swelling for the past 2 weeks, swelling slowly got worse, associated with some upper extremity swelling. Cannot lie flat. Denies any chest pain, denies any cough, denies any sputum production. Denies any cough. Denies any nausea, denies any vomiting, denies any diarrhea. PAST MEDICAL HISTORY: As per HPI. PAST SURGICAL HISTORY: Hip replacement, knee replacement, AICD. MEDICATIONS: Reviewed. FAMILY HISTORY: Denies any heart problems. REVIEW OF SYSTEMS: Constitutional: Denies any fever, denies any chills. Eyes : Denies any vision problems. Ears: Denies any hearing loss. Neck: Denies any neck pain. Cardiovascular system: Denies any chest pain, denies any palpitations. Respiratory system: Positive for dyspnea. Positive for orthopnea. Gastrointestinal system: Denies any nausea, vomiting. Cranial nerve system: Denies syncope. Psychiatric: Denies depression, anxiety. Musculoskeletal: Bilateral lower extremity swelling. All other review of systems are reviewed and are negative. PHYSICAL EXAMINATION: CONSTITUTIONAL/VITAL SIGNS: At the time of H&P performed blood pressure is 100/ 85, pulse ox 93% on oxygen, afebrile, respiration rate 18. GENERAL: Patient appears comfortable. Anterior nares patent. NECK: No JVD seen. CARDIOVASCULAR: S1, S2 present. Regular rate and rhythm. No murmurs, no rubs , no gallops. RESPIRATORY SYSTEM: No wheezing or rhonchi. Diminished at the bases. Positive for crackles. No accessory muscle seen. GASTROINTESTINAL: Abdomen is soft, nontender, no guarding, no organomegaly, no masses felt. Distended. MUSCULOSKELETAL: Bilateral lower extremity, 2+ pitting edema present. INTEGUMENTARY: No obvious rash seen PSYCHIATRIC: Mood is appropriate at this time. NEUROLOGIC: Cranial nerves intact. Follows commands. Strength intact, sensory intact. LABORATORY DATA: At the time of H&P performed white count 4.6, hemoglobin 14, platelet count is 112. BMP showed troponin 0.063. ASSESSMENT AND PLAN: The patient is an 86-year-old male, 1. Acute congestive heart failure exacerbation. Plan to monitor the patient closely. Plan to start patient on IV diuretics. Plan to consult Cardiology to evaluate the patient. 2. History of hypertension. Monitor blood pressure. Continue home blood pressure medications. 3. History of gastroesophageal reflux disease. Continue proton pump inhibitor. 4. History of left ventricular thrombus and paroxysmal atrial fibrillation. Monitor heart rate closely. Plan to check bilateral carotid ultrasound to rule out any deep venous thrombosis also. 5. History of hyperlipidemia. Continue statins. The case was discussed in detail with the patient. HALEY
--- NOTE | 2017-06-17 08:42 | ULT ---
BILATERAL LOWER EXTREMITY VENOUS DUPLEX STUDY: Date: 06/17/17 Deep veins of both lower extremities evaluated with color Doppler, spectral analysis, and compression studies. HISTORY: Bilateral lower extremity edema. Assess for deep venous thrombosis. FINDINGS: Deep veins of both lower extremities show normal compression and blood flow. No evidence of deep veno us thrombosis identified. IMPRESSION: No evidence of lower extremity deep venous thrombosis. POS: [facility]
[2017-06-17] MEDS ORDERED: Aspirin 81 mg Enteric Coated Tablet PO SCH (09:00)
[2017-06-17] MEDS: Carvedilol 6.25 MG TAB PO SCH ×2 (09:41→21:04)
[2017-06-17] MEDS: Spironolactone 25 MG TAB PO SCH (09:44)
[2017-06-17] MEDS: Fluticasone Propionate Nasal Spray 16 gm Bottle NASAL SCH (12:00)
--- NOTE | 2017-06-17 14:25 | PDOC.PN ---
- Subjective Encounter Start Date: 06/17/17 Encounter Start Time: 14:24 Subjective: feels better than yesterday but still w lots of swelling.breathing easier -: reports dietry indiscretion since [place] - Objective MAR Reviewed: Yes Vital Signs & Weight: Vital Signs (12 hours) Temp Pulse Pulse Pulse Resp BP BP 06/17/17 11:56 88 91 106/68 06/17/17 11:20 97.8 F 80 13 06/17/17 09:41 120/79 06/17/17 04:27 97.9 F 91 18 BP BP Pulse Ox Pulse Ox Pulse Ox 06/17/17 11:56 112/78 95 95 06/17/17 11:20 118/65 98 06/17/17 09:41 06/17/17 04:27 113/76 94 L Weight Admit Weight 247 lb 4.8 oz Weight 247 lb 8 oz I&O: 06/16/17 06/17/17 06/18/17 06:59 06:59 06:59 Intake Total 0 Balance 0 Result Diagrams: 06/16/17 18:33 06/16/17 18:33 Additional Labs: Laboratory Tests 04/17/17 04/18/17 04/19/17 09:41 14:00 10:07 Plt Count 67 L Creatinine 1.60 H Troponin I 0.071 H B-Natriuretic Peptide 04/19/17 06/05/17 06/05/17 10:07 15:46 15:46 Plt Count 67 L 87 L Creatinine 1.19 H Troponin I B-Natriuretic Peptide 06/05/17 06/05/17 06/16/17 15:46 15:46 18:33 Plt Count Creatinine Troponin I 0.016 0.077 H B-Natriuretic Peptide 1613.5 H 06/16/17 06/16/17 06/16/17 18:33 18:33 18:33 Plt Count 112 L Creatinine 1.59 H Troponin I B-Natriuretic Peptide 3033.9 H 06/16/17 06/17/17 06/17/17 21:03 00:51 04:43 Plt Count Creatinine Troponin I 0.063 H 0.065 H 0.084 H B-Natriuretic Peptide Radiology Reviewed by me: Yes (Doppler-no DVT) Phys Exam - Physical Examination Constitutional: NAD sleeping slumped over in chair HEENT: PERRLA, moist MMs, sclera anicteric, oral pharynx no lesions Neck: no nodes, no JVD, supple, full ROM Respiratory: no wheezing, no rhonchi, clear to auscultation bilateral basilar carckles Cardiovascular: RRR, no significant murmur Gastrointestinal: soft, non-tender, no distention, positive bowel sounds Musculoskeletal: pulses present, edema present (=3 b/l w weeping) Neurological: non-focal, normal sensation, moves all 4 limbs Dx/Plan (1) Acute combined systolic and diastolic CHF, NYHA class 3 Code(s): I50.41 - ACUTE COMBINED SYSTOLIC AND DIASTOLIC (CONGESTIVE) HRT FAIL Status: Acute (2) Arrhythmia Code(s): I49.9 - CARDIAC ARRHYTHMIA, UNSPECIFIED Status: Acute Qualifiers: Premature depolarization type: atrial Comment: transient (3) FIDELIA (acute kidney injury) Code(s): N17.9 - ACUTE KIDNEY FAILURE, UNSPECIFIED Status: Acute (4) Non-ischemic cardiomyopathy Code(s): I42.8 - OTHER CARDIOMYOPATHIES Status: Chronic Comment: Likley due to ChemoRx for Breast CA (5) H/O malignant neoplasm of breast Code(s): Z85.3 - PERSONAL HISTORY OF MALIGNANT NEOPLASM OF BREAST Status: Chronic Comment: s/p Sx and XRT in past (6) h/o Left ventricular thrombus Status: Chronic Comment: s/p Coumadin for 6 months (7) Dyslipidemia Code(s): E78.5 - HYPERLIPIDEMIA, UNSPECIFIED Status: Chronic (8) HTN (hypertension) Code(s): I10 - ESSENTIAL (PRIMARY) HYPERTENSION Status: Chronic Qualifiers: Hypertension type: essential hypertension Qualified Code(s): I10 - Essential (primary) hypertension (9) Obesity (BMI 30-39.9) Code(s): E66.9 - OBESITY, UNSPECIFIED Status: Chronic (10) Thrombocytopenia Code(s): D69.6 - THROMBOCYTOPENIA, UNSPECIFIED Status: Chronic (11) AICD (automatic cardioverter/defibrillator) present Code(s): Z95.810 - PRESENCE OF AUTOMATIC (IMPLANTABLE) CARDIAC DEFIBRILLATOR Status: Acute - Plan PT/OT, social security specialist, respiratory therapy, incentive spirometry, out of bed/ ambulate, DVT proph w/SCDs cont aggresive diuresis.pt advised/educated about dietry discretion -: ECHO,cardiology consult. -: monitor labs.cont tele.Non sustained PAt & VT this am.asymptomatic -: HF clinic,CR on DC.fluid restriction in house -: monitor platelets counts.Monitor renal Fx. * . Review of Systems - Review of Systems Constitutional: Weakness, Malaise. negative: Fever, Chills, Sweats, Other ENT: negative: Ear Pain, Ear Discharge, Nose Pain, Nose Discharge, Nose Congestion, Mouth Pain, Mouth Swelling, Throat Pain, Throat Swelling, Other Respiratory: SOB with Excertion. negative: Cough, Dry, Shortness of Breath, Hemoptysis, Pleuritic Pain, Sputum, Wheezing Cardiovascular: Orthopnea, Paroxysmal Noc. Dyspnea, Edema. negative: Chest Pain , Palpitations, Light Headedness, Other Gastrointestinal: negative: Nausea, Vomiting, Abdominal Pain, Diarrhea, Constipation, Melena, Hematochezia, Other Genitourinary: negative: Dysuria, Frequency, Incontinence, Hematuria, Retention , Other Musculoskeletal: negative: Neck Pain, Shoulder Pain, Arm Pain, Back Pain, Hand Pain, Leg Pain, Foot Pain, Other Neurological: negative: Weakness, Numbness, Incoordination, Change in Speech, Confusion, Seizures, Other - Medications/Allergies Allergies/Adverse Reactions: Allergies Allergy/AdvReac Type Severity Reaction Status Date / Time lisinopril Allergy Mild Verified 04/17/17 06:15 losartan Allergy Verified 04/19/17 05:31 morphine Allergy Verified 04/17/17 06:15 Medications: Current Medications Albuterol/Ipratropium (Duoneb) 3 ml NEB QID PRN PRN Reason: SOB &/or Wheezing Alprazolam (Xanax) 0.5 mg PO TID PRN PRN Reason: Anxiety Last Admin: 06/17/17 00:22 Dose: 0.5 mg Aspirin (Aspirin Chewable) 81 mg PO DAILY [facility] Last Admin: 06/17/17 09:44 Dose: 81 mg Atorvastatin Calcium (Lipitor) 40 mg PO HS [facility] Carvedilol (Coreg) 6.25 mg PO BID [facility] Last Admin: 06/17/17 09:41 Dose: 6.25 mg Fluticasone Propionate (Flonase Nasal [place]) 0 gm NASAL DAILY [facility] Furosemide (Lasix) 40 mg SLOW IVP 0300,1100,1900 [facility] Last Admin: 06/17/17 12:30 Dose: 40 mg Ondansetron HCl (Zofran) 4 mg IVP Q6H PRN PRN Reason: Nausea/Vomiting Last Admin: 06/17/17 06:44 Dose: 4 mg Pantoprazole Sodium (Protonix) 40 mg PO DAILY [facility] Last Admin: 06/17/17 09:44 Dose: 40 mg Sodium Chloride (Flush - Normal Saline) 10 ml IVF Q12HR [facility] Last Admin: 06/17/17 09:44 Dose: 10 ml Sodium Chloride (Flush - Normal Saline) 10 ml IVF PRN PRN PRN Reason: Saline Flush Spironolactone (Aldactone) 25 mg PO DAILY [facility] Last Admin: 06/17/17 09:44 Dose: 25 mg
--- NOTE | 2017-06-17 18:55 | CON ---
DATE OF CONSULTATION: 06/17/2017 REASON FOR CONSULTATION: Acute on chronic systolic heart failure. HISTORY OF PRESENT ILLNESS: Ms. Anselmo Guerrero is a pleasant 86-year-old woman who has been seen and evaluated by Dr. Rock Limon in the past. She recently presented with significant lower extremity jose ma. She also has had mild shortness of breath. No chest pain or pressure, or other associated sympt oms noted. PAST MEDICAL HISTORY: Systolic heart failure, hypertension, obesity, hyperlipidemia, osteoarthritis, acid reflux, paroxysmal atrial fibrillation. PAST SURGICAL HISTORY: Hip replacement, knee surgery, AICD placement. FAMILY HISTORY: Negative for CAD. HOME MEDICATIONS: Buspirone, spironolactone, Protonix, ondansetron, nortriptyline, DuoNeb, Lasix, Fl onase, carvedilol, calamine lotion, Lipitor, aspirin, and Xanax. ALLERGIES: LISINOPRIL, LOSARTAN, MORPHINE. REVIEW OF SYSTEMS: Ten point review of system is reviewed and is as above, negative. PHYSICAL EXAMINATION: VITAL SIGNS: Blood pressure 106/74, pulse 80, temperature 98.3. GENERAL: Patient is a pleasant male/female who is in no acute distress. The patient appears his/her stated age. NEUROLOGIC: The patient is alert and oriented times 3 with no focal neurologic deficits. HEENT: Sclerae without icterus. Mouth has moist mucous membranes with normal pallor. NECK: No JVD. Carotid upstroke brisk. No bruits bilaterally. LUNGS: Clear to auscultation with unlabored respirations. BACK: No scoliosis or kyphosis. CARDIAC: Regular rate and rhythm with normal S1 and S2. No S3 or S4 noted. No significant rubs, mu rmurs, thrills, or gallops noted throughout the precordium. PMI is not displaced. There is no josé miguel ternal heave. ABDOMEN: Soft, nontender, nondistended. No peritoneal signs present. No hepatosplenomegaly. No ab normal striae. EXTREMITIES: 2 to 3+ pitting edema. SKIN: No gross abnormalities. LABORATORY: White blood cell count 4.6, creatinine 1.59. BNP 3033. Troponin negative. IMPRESSION: 1. Acute on chronic systolic heart failure. 2. Lower extremity edema. 3. Status post AICD placement. RECOMMENDATIONS: Patient is currently on Lasix t.i.d. IV. May consider adding Zaroxolyn tomorrow mo rning. Continue fluid restriction and salt restriction. Continue Coreg in addition to atorvastatin. Dr. Rock Limon to evaluate in a.m.
[2017-06-17] MEDS: Atorvastatin Calcium 40 MG TAB PO SCH (21:04)
[2017-06-18] MEDS: Furosemide 40 MG/4 ML VIAL SLOW IVP SCH (03:08)
[2017-06-18] MEDS: Fluticasone Propionate Nasal Spray 16 gm Bottle NASAL SCH (10:06)
[2017-06-18] MEDS: Carvedilol 6.25 MG TAB PO SCH ×2 (10:08→20:41)
[2017-06-18] MEDS: Furosemide 100 MG/10 ML VIAL IVPB SCH ×2 (10:08→18:05)
[2017-06-18] MEDS: Spironolactone 25 MG TAB PO SCH (10:10)
[2017-06-18 10:58] LABS: Anion Gap 15 mmol/L (10-20); BUN (Urea Nitrogen) 25 mg/dL (9.8-20.1); Calc. Creatinine Clearance 46 mL/min (70-130); Calcium 9.2 mg/dL (7.8-10.44); Carbon Dioxide 24 mmol/L (23-31); Chloride 105 mmol/L (98-107); Estimated GFR-MDRD 38
[2017-06-18 11:56] LABS: #Eosinphils 0.3 thou/uL (0.0-0.7); #Lymphocytes 2.2 thou/uL (1.20-3.40); #Monocytes 0.5 thou/uL (0.11-0.59); #Neutrophils 1.4 thou/uL (1.40-6.50); %Basophils 0.8 % (0.0-1.0); %Eosinophils 6.2 % (0.0-10.0); %Lymphocytes 49.6 % (21.0-51.0); %Monocytes 10.8 % (0.0-10.0); Hematocrit 45.5 % (36.0-47.0); Hypochromia SLIGHT = 6-15 cells (100X) (0-5/hpf); Mean Platelet Volume 9.7 fL (7.4-10.4); Neutrophil 36 % (42-75); Polychromasia SLIGHT = 2-3 cells (100X) (0-2/hpf); Reactive Lymphocytes 2 % (0-10); Red Blood Cell (RBC) Count 5.31 mill/uL (4.20-5.40); Target Cells SLIGHT = 2-5 cells (100X) (0-1/hpf); White Blood Cell (WBC) Count 4.4 thou/uL (4.8-10.8)
--- NOTE | 2017-06-18 13:25 | PDOC.PN ---
- Subjective Encounter Start Date: 06/18/17 Encounter Start Time: 13:23 Subjective: feels a little better but leg swelling still the same - Objective MAR Reviewed: Yes Vital Signs & Weight: Vital Signs (12 hours) Temp Pulse Pulse Pulse Resp BP BP 06/18/17 12:00 97.6 F 85 14 06/18/17 11:13 89 87 114/71 06/18/17 10:08 111/66 06/18/17 05:12 97.3 F L 86 19 06/18/17 04:00 97.3 F L 86 19 BP BP Pulse Ox 06/18/17 12:00 112/74 98 06/18/17 11:13 111/73 06/18/17 10:08 06/18/17 05:12 113/72 99 06/18/17 04:00 113/72 99 Weight Admit Weight 247 lb 4.8 oz Weight 245 lb 1 oz I&O: 06/17/17 06/18/17 06/19/17 06:59 06:59 06:59 Intake Total 0 960 Output Total 1600 Balance 0 -640 Result Diagrams: 06/18/17 10:31 06/18/17 10:31 Additional Labs: Laboratory Tests 06/16/17 06/16/17 06/17/17 18:33 21:03 00:51 Troponin I 0.077 H 0.063 H 0.065 H 06/17/17 04:43 Troponin I 0.084 H Laboratory Tests 06/05/17 06/16/17 06/18/17 15:46 18:33 10:31 Creatinine 1.19 H 1.59 H 1.55 H Phys Exam - Physical Examination Constitutional: NAD HEENT: PERRLA, moist MMs, sclera anicteric, TM's clear, oral pharynx no lesions , 2+ tonsils Neck: no nodes, no JVD, supple, full ROM Respiratory: no wheezing, no rales, no rhonchi, clear to auscultation bilateral Cardiovascular: RRR, no significant murmur Gastrointestinal: soft, non-tender, no distention, positive bowel sounds Musculoskeletal: no edema, pulses present Neurological: non-focal, normal sensation, moves all 4 limbs Psychiatric: normal affect, A&O x 3 Skin: no rash Dx/Plan (1) Acute combined systolic and diastolic CHF, NYHA class 3 Code(s): I50.41 - ACUTE COMBINED SYSTOLIC AND DIASTOLIC (CONGESTIVE) HRT FAIL Status: Acute (2) Arrhythmia Code(s): I49.9 - CARDIAC ARRHYTHMIA, UNSPECIFIED Status: Acute Qualifiers: Premature depolarization type: atrial Comment: transient (3) FIDELIA (acute kidney injury) Code(s): N17.9 - ACUTE KIDNEY FAILURE, UNSPECIFIED Status: Acute (4) Non-ischemic cardiomyopathy Code(s): I42.8 - OTHER CARDIOMYOPATHIES Status: Chronic Comment: Likley due to ChemoRx for Breast CA (5) H/O malignant neoplasm of breast Code(s): Z85.3 - PERSONAL HISTORY OF MALIGNANT NEOPLASM OF BREAST Status: Chronic Comment: s/p Sx and XRT in past (6) h/o Left ventricular thrombus Status: Chronic Comment: s/p Coumadin for 6 months (7) Dyslipidemia Code(s): E78.5 - HYPERLIPIDEMIA, UNSPECIFIED Status: Chronic (8) HTN (hypertension) Code(s): I10 - ESSENTIAL (PRIMARY) HYPERTENSION Status: Chronic Qualifiers: Hypertension type: essential hypertension Qualified Code(s): I10 - Essential (primary) hypertension (9) Obesity (BMI 30-39.9) Code(s): E66.9 - OBESITY, UNSPECIFIED Status: Chronic (10) Thrombocytopenia Code(s): D69.6 - THROMBOCYTOPENIA, UNSPECIFIED Status: Chronic (11) AICD (automatic cardioverter/defibrillator) present Code(s): Z95.810 - PRESENCE OF AUTOMATIC (IMPLANTABLE) CARDIAC DEFIBRILLATOR Status: Acute - Plan PT/OT, incentive spirometry, out of bed/ambulate, DVT proph w/SCDs cont diuresis.increase Lasix as urin eoutput not much -: Pt can not take zaroxolyn as she had severe thrombocytopenia w it -: ECHO pending.Final cardiology recs -: cont fluid restriction. Pt educated again about dietry restrictions -: hemodynamically stable. am labs * . Review of Systems - Review of Systems Constitutional: negative: Fever, Chills, Sweats, Weakness, Malaise, Other ENT: negative: Ear Pain, Ear Discharge, Nose Pain, Nose Discharge, Nose Congestion, Mouth Pain, Mouth Swelling, Throat Pain, Throat Swelling, Other Respiratory: Shortness of Breath. negative: Cough, Dry, Hemoptysis, SOB with Excertion, Pleuritic Pain, Sputum, Wheezing Cardiovascular: Orthopnea, Paroxysmal Noc. Dyspnea, Edema. negative: Chest Pain , Palpitations, Light Headedness, Other Gastrointestinal: Other. negative: Nausea, Vomiting, Abdominal Pain, Diarrhea, Constipation, Melena, Hematochezia Genitourinary: negative: Dysuria, Frequency, Incontinence, Hematuria, Retention , Other Musculoskeletal: negative: Neck Pain, Shoulder Pain, Arm Pain, Back Pain, Hand Pain, Leg Pain, Foot Pain, Other Neurological: negative: Weakness, Numbness, Incoordination, Change in Speech, Confusion, Seizures, Other - Medications/Allergies Allergies/Adverse Reactions: Allergies Allergy/AdvReac Type Severity Reaction Status Date / Time lisinopril Allergy Mild Verified 04/17/17 06:15 losartan Allergy Verified 04/19/17 05:31 morphine Allergy Verified 04/17/17 06:15 Medications: Current Medications Albuterol/Ipratropium (Duoneb) 3 ml NEB QID PRN PRN Reason: SOB &/or Wheezing Alprazolam (Xanax) 0.5 mg PO TID PRN PRN Reason: Anxiety Last Admin: 06/17/17 00:22 Dose: 0.5 mg Aspirin (Aspirin Chewable) 81 mg PO DAILY [facility] Last Admin: 06/18/17 10:09 Dose: 81 mg Atorvastatin Calcium (Lipitor) 40 mg PO HS [facility] Last Admin: 06/17/17 21:04 Dose: 40 mg Carvedilol (Coreg) 6.25 mg PO BID [facility] Last Admin: 06/18/17 10:08 Dose: 6.25 mg Fluticasone Propionate (Flonase Nasal [place]) 0 gm NASAL DAILY [facility] Last Admin: 06/18/17 10:06 Dose: 1 spray Furosemide (Lasix) 60 mg IVPB 0300,1100,1900 [facility] Last Admin: 06/18/17 10:08 Dose: 60 mg Ondansetron HCl (Zofran) 4 mg IVP Q6H PRN PRN Reason: Nausea/Vomiting Last Admin: 06/17/17 06:44 Dose: 4 mg Pantoprazole Sodium (Protonix) 40 mg PO DAILY [facility] Last Admin: 06/18/17 10:08 Dose: 40 mg Sodium Chloride (Flush - Normal Saline) 10 ml IVF Q12HR [facility] Last Admin: 06/18/17 10:10 Dose: 10 ml Sodium Chloride (Flush - Normal Saline) 10 ml IVF PRN PRN PRN Reason: Saline Flush Spironolactone (Aldactone) 25 mg PO DAILY [facility] Last Admin: 06/18/17 10:10 Dose: Not Given
[2017-06-18] MEDS ORDERED: Potassium Chloride 20 MEQ TAB PO SCH (13:30)
--- NOTE | 2017-06-18 15:29 | PDOC.CTH ---
<Sulma Brewer - Last Filed: 06/18/17 15:21> Cardiology Progress Note - Subjective The pt seen and examined. No overnight events. No cardiac complaints. She reported that her edema in BLE have improved today. Still on 2LNC. - Objective Vital Signs Temp Pulse Pulse Pulse Resp BP BP 06/18/17 12:00 97.6 F 85 14 06/18/17 11:13 89 87 114/71 06/18/17 10:08 111/66 06/18/17 05:12 97.3 F L 86 19 06/18/17 04:00 97.3 F L 86 19 BP BP Pulse Ox 06/18/17 12:00 112/74 98 06/18/17 11:13 111/73 06/18/17 10:08 06/18/17 05:12 113/72 99 06/18/17 04:00 113/72 99 Admit Weight 247 lb 4.8 oz Weight 245 lb 1 oz 06/17/17 06/18/17 06/19/17 06:59 06:59 06:59 Intake Total 0 960 Output Total 1600 Balance 0 -640 - Physical Examination Neck: no JVD present Lungs: other: (diminished at bases) Heart: RRR Abdomen: soft Extremities: other: (nonpitting edema in BLE) - Telemetry Telemetry Rhythm: SR - Labs Result Diagrams: 06/18/17 10:31 06/18/17 10:31 Troponin/CKMB CK-MB (CK-2) 3.3 ng/mL (0-6.6) 06/16/17 18:33 Troponin I 0.084 ng/mL (< 0.028) H 06/17/17 04:43 - Assessment/Plan 1. 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 Non-ischemic cardiomyopathy Likley due to Chemo Rx for Breast Ca with AICD - 3. BLE Edema - improving with diuretic; 4. FIDELIA - stable; cont. monitor 5. HTN - stable with current medication 6. Dyslipidemia - on statin 7. Breast Ca with s/p mastectomy and Radiation tx. 8. obesity MAR reviewed Review of Systems - Review of Systems Constitutional: reports: no symptoms reported EENTM: reports: no symptoms reported Respiratory: reports: see HPI Cardiac (ROS): reports: no symptoms reported ABD/GI: reports: no symptoms reported : reports: no symptoms reported Musculoskeletal: reports: no symptoms reported <Ashlie Limon - Last Filed: 06/18/17 18:29> Cardiology Progress Note - Objective Vital Signs Temp Pulse Pulse Pulse Resp BP BP 06/18/17 16:00 97.7 F 84 18 06/18/17 12:00 97.6 F 85 20 06/18/17 11:13 89 87 114/71 06/18/17 10:08 111/66 06/18/17 08:40 97.3 F L 80 18 BP BP Pulse Ox 06/18/17 16:00 106/71 100 06/18/17 12:00 112/74 98 06/18/17 11:13 111/73 06/18/17 10:08 06/18/17 08:40 97 Admit Weight 247 lb 4.8 oz Weight 245 lb 1 oz 06/17/17 06/18/17 06/19/17 06:59 06:59 06:59 Intake Total 0 960 720 Output Total 1600 Balance 0 -640 720 - Labs Result Diagrams: 06/18/17 10:31 06/18/17 10:31 Troponin/CKMB CK-MB (CK-2) 3.3 ng/mL (0-6.6) 06/16/17 18:33 Troponin I 0.084 ng/mL (< 0.028) H 06/17/17 04:43 - Assessment/Plan Pt. seen and eval. by me. I agree with the A/P by the BIOMEDICAL ENGINEERING AIDE. She denies CP or SOB. Lower extremity edema persists.
[2017-06-18] MEDS: Atorvastatin Calcium 40 MG TAB PO SCH (20:40)
[2017-06-19] MEDS: ALPRAZolam 0.5 MG TAB PO PRN ×2 (01:26→22:01)
[2017-06-19] MEDS: Furosemide 100 MG/10 ML VIAL IVPB SCH ×3 (03:35→21:14)
[2017-06-19 05:20] LABS: Anion Gap 16 mmol/L (10-20); BUN (Urea Nitrogen) 25 mg/dL (9.8-20.1); Calc. Creatinine Clearance 45 mL/min (70-130); Calcium 9.6 mg/dL (7.8-10.44); Carbon Dioxide 19 mmol/L (23-31); Chloride 106 mmol/L (98-107); Estimated GFR-MDRD 38
[2017-06-19 06:52] LABS: Hematocrit 44.6 % (36.0-47.0); Mean Platelet Volume 11.7 fL (7.4-10.4); Red Blood Cell (RBC) Count 5.23 mill/uL (4.20-5.40); White Blood Cell (WBC) Count 4.6 thou/uL (4.8-10.8)
[2017-06-19 07:30] LABS: Neutrophil 29 % (42-75); Reactive Lymphocytes 4 % (0-10); Target Cells MODERATE= 6-15 cells (100X) (0-1/hpf)
[2017-06-19] MEDS: Spironolactone 25 MG TAB PO SCH (09:06)
[2017-06-19] MEDS: Carvedilol 6.25 MG TAB PO SCH ×2 (09:06→21:15)
[2017-06-19] MEDS: Fluticasone Propionate Nasal Spray 16 gm Bottle NASAL SCH (09:07)
--- NOTE | 2017-06-19 10:26 | PDOC.PN ---
- Subjective Encounter Start Date: 06/19/17 Encounter Start Time: 10:24 Patient seen and examined. No new complaints. No overnight events. still having edema. On O2. - Objective Vital Signs & Weight: Vital Signs (12 hours) Temp Pulse Resp BP BP Pulse Ox 06/19/17 09:06 103/58 L 06/19/17 09:05 97.0 F L 78 16 103/58 L 98 06/19/17 04:00 97.4 F L 83 20 108/73 100 06/18/17 23:53 89 116/74 Weight Admit Weight 247 lb 4.8 oz Weight 243 lb 8 oz I&O: 06/18/17 06/19/17 06/20/17 06:59 06:59 06:59 Intake Total 960 1580 Output Total 1600 1600 Balance -640 -20 Result Diagrams: 06/19/17 06:35 06/19/17 04:37 Phys Exam - Physical Examination HEENT: sclera anicteric Neck: supple Respiratory: no wheezing, no rales Cardiovascular: RRR Gastrointestinal: soft Musculoskeletal: edema present Neurological: moves all 4 limbs Psychiatric: normal affect, A&O x 3 Dx/Plan (1) FIDELIA (acute kidney injury) Code(s): N17.9 - ACUTE KIDNEY FAILURE, UNSPECIFIED Status: Acute (2) Acute combined systolic and diastolic CHF, NYHA class 3 Code(s): I50.41 - ACUTE COMBINED SYSTOLIC AND DIASTOLIC (CONGESTIVE) HRT FAIL Status: Acute (3) Non-ischemic cardiomyopathy Code(s): I42.8 - OTHER CARDIOMYOPATHIES Status: Chronic Comment: Likley due to ChemoRx for Breast CA (4) h/o Left ventricular thrombus Status: Chronic Comment: s/p Coumadin for 6 months (5) Anxiety and depression Code(s): F41.8 - OTHER SPECIFIED ANXIETY DISORDERS Status: Chronic (6) Dyslipidemia Code(s): E78.5 - HYPERLIPIDEMIA, UNSPECIFIED Status: Chronic (7) HTN (hypertension) Code(s): I10 - ESSENTIAL (PRIMARY) HYPERTENSION Status: Chronic Qualifiers: Hypertension type: essential hypertension Qualified Code(s): I10 - Essential (primary) hypertension (8) Obesity (BMI 30-39.9) Code(s): E66.9 - OBESITY, UNSPECIFIED Status: Chronic (9) Thrombocytopenia Code(s): D69.6 - THROMBOCYTOPENIA, UNSPECIFIED Status: Chronic - Plan cont current plan of care * . continue diuretics and fluid restriction. f/u with cardiology. AM labs.
[2017-06-19] MEDS: Ondansetron HCl/PF 4 MG/2 ML Vial IVP PRN (11:34)
--- NOTE | 2017-06-19 12:18 | PDOC.CTH ---
<Sulma Brewer - Last Filed: 06/19/17 12:15> Cardiology Progress Note - Subjective The pt seen and examined. No overnight events. No cardiac complaints. 97-98% with RA and No distress or SOB. She complains of weakness when she gets up to chair - Objective Vital Signs Temp Pulse Resp BP BP Pulse Ox 06/19/17 11:34 97.0 F L 95 20 118/65 100 06/19/17 09:06 103/58 L 06/19/17 09:05 97.0 F L 78 16 103/58 L 98 06/19/17 08:00 97.0 F L 95 20 98 06/19/17 04:00 97.4 F L 83 20 108/73 100 Admit Weight 247 lb 4.8 oz Weight 243 lb 8 oz 06/18/17 06/19/17 06/20/17 06:59 06:59 06:59 Intake Total 960 1580 Output Total 1600 1600 Balance -640 -20 - Physical Examination General/Neuro: alert & oriented x3 Neck: no JVD present Lungs: other: (diminished at bases) Heart: RRR Abdomen: soft Extremities: other: (mod-severe non-pitting edema in BLE) - Labs Result Diagrams: 06/19/17 06:35 06/19/17 04:37 Troponin/CKMB CK-MB (CK-2) 3.3 ng/mL (0-6.6) 06/16/17 18:33 Troponin I 0.084 ng/mL (< 0.028) H 06/17/17 04:43 - Assessment/Plan 1. 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 Non-ischemic cardiomyopathy Likley due to Chemo Rx for Breast Ca with AICD - 3. BLE Edema - improving with diuretic; cont. current medication 4. FIDELIA - stable; cont. monitor 5. HTN - stable with current medication 6. Dyslipidemia - on statin 7. Breast Ca with s/p mastectomy and Radiation tx. 8. obesity MAR reviewed Review of Systems - Review of Systems Constitutional: reports: no symptoms reported EENTM: reports: no symptoms reported Respiratory: reports: see HPI Cardiac (ROS): reports: no symptoms reported ABD/GI: reports: no symptoms reported : reports: no symptoms reported Musculoskeletal: reports: no symptoms reported Skin: reports: no symptoms reported Neurological: reports: no symptoms reported <Ashlie Limon - Last Filed: 06/19/17 14:43> Cardiology Progress Note - Objective Vital Signs Temp Pulse Pulse Pulse Resp BP BP 06/19/17 11:34 97.0 F L 95 20 06/19/17 10:54 95 81 118/65 06/19/17 09:06 103/58 L 06/19/17 09:05 97.0 F L 78 16 06/19/17 08:00 97.0 F L 95 20 06/19/17 04:00 97.4 F L 83 20 BP BP Pulse Ox 06/19/17 11:34 118/65 100 06/19/17 10:54 100/68 06/19/17 09:06 06/19/17 09:05 103/58 L 98 06/19/17 08:00 98 06/19/17 04:00 108/73 100 Admit Weight 247 lb 4.8 oz Weight 243 lb 8 oz 06/18/17 06/19/17 06/20/17 06:59 06:59 06:59 Intake Total 960 1580 Output Total 1600 1600 Balance -640 -20 - Labs Result Diagrams: 06/19/17 06:35 06/19/17 04:37 Troponin/CKMB CK-MB (CK-2) 3.3 ng/mL (0-6.6) 06/16/17 18:33 Troponin I 0.084 ng/mL (< 0.028) H 06/17/17 04:43 - Assessment/Plan Pt. seen and eval. by me. I agree with the A/P by the CASE PACKER. She denies CP or SOB. Lower extremity edema persists.the I/O's are not very negative. continue to diurese.
[2017-06-19] MEDS ORDERED: Ondansetron ODT 4 MG TAB SL PRN (15:35)
[2017-06-19] MEDS: Atorvastatin Calcium 40 MG TAB PO SCH (21:14)
[2017-06-20] MEDS: Furosemide 100 MG/10 ML VIAL IVPB SCH (03:27)
[2017-06-20 06:13] LABS: Anion Gap 16 mmol/L (10-20); BUN (Urea Nitrogen) 28 mg/dL (9.8-20.1); Calc. Creatinine Clearance 38 mL/min (70-130); Calcium 9.3 mg/dL (7.8-10.44); Carbon Dioxide 22 mmol/L (23-31); Chloride 106 mmol/L (98-107); Estimated GFR-MDRD 32; Magnesium 1.7 mg/dL (1.6-2.6)
--- NOTE | 2017-06-20 09:18 | PDOC.PN ---
- Subjective Encounter Start Date: 06/20/17 Encounter Start Time: 09:16 Ms. Guerrero was seen today in CHF exacerbation. She says she is doing better. She believes the swelling in her legs has gone down some, She denies any dyspnea. - Objective MAR Reviewed: Yes Vital Signs & Weight: Vital Signs (12 hours) Temp Pulse Resp BP Pulse Ox 06/20/17 04:00 97.6 F 73 18 117/75 100 Weight Admit Weight 247 lb 4.8 oz Weight 238 lb 4 oz I&O: 06/19/17 06/20/17 06/21/17 06:59 06:59 06:59 Intake Total 1580 1080 Output Total 1600 2190 Balance -20 -1110 Result Diagrams: 06/19/17 06:35 06/20/17 05:17 Phys Exam - Physical Examination HEENT: PERRLA Respiratory: no wheezing, no rales, no rhonchi Cardiovascular: RRR, no significant murmur Gastrointestinal: soft, non-tender, positive bowel sounds Musculoskeletal: edema present 2-3 + pitting edema Dx/Plan (1) FIDELIA (acute kidney injury) Code(s): N17.9 - ACUTE KIDNEY FAILURE, UNSPECIFIED Status: Acute (2) Non-ischemic cardiomyopathy Code(s): I42.8 - OTHER CARDIOMYOPATHIES Status: Chronic Comment: Likley due to ChemoRx for Breast CA (3) Acute on chronic combined systolic and diastolic congestive heart failure Code(s): I50.43 - ACUTE ON CHRONIC COMBINED SYSTOLIC AND DIASTOLIC HRT FAIL Status: Acute (4) Dyslipidemia Code(s): E78.5 - HYPERLIPIDEMIA, UNSPECIFIED Status: Chronic (5) HTN (hypertension) Code(s): I10 - ESSENTIAL (PRIMARY) HYPERTENSION Status: Chronic Qualifiers: Hypertension type: essential hypertension Qualified Code(s): I10 - Essential (primary) hypertension (6) Thrombocytopenia Code(s): D69.6 - THROMBOCYTOPENIA, UNSPECIFIED Status: Chronic - Plan * Acute on chronic systolic and diastolic heart failure- she has diuresed well, and lost up to 10 pounds * Acute on chronic kidney disease- slight worsening of her renal function- will cut back her dose of Lasix, and monitor her renal function * I have explained to the patient that she may have to tolerate some leg edema, and consider compression hose as well * HTN- blood pressure is stable.
[2017-06-20] MEDS: Fluticasone Propionate Nasal Spray 16 gm Bottle NASAL SCH (09:19)
[2017-06-20] MEDS: Carvedilol 6.25 MG TAB PO SCH ×2 (09:20→21:37)
[2017-06-20] MEDS: Spironolactone 25 MG TAB PO SCH (09:20)
[2017-06-20] MEDS: ALPRAZolam 0.5 MG TAB PO PRN (16:05)
[2017-06-20] MEDS ORDERED: Milk Of Magnesia 30 ML UDCUP PO SCH (18:30)
[2017-06-20] MEDS ORDERED: Milk Of Magnesia 30 ML UDCUP PO PRN (18:30)
[2017-06-20] MEDS: Atorvastatin Calcium 40 MG TAB PO SCH (21:38)
[2017-06-21] MEDS: ALPRAZolam 0.5 MG TAB PO PRN ×2 (01:24→21:59)
[2017-06-21 06:13] LABS: Anion Gap 18 mmol/L (10-20); BUN (Urea Nitrogen) 29 mg/dL (9.8-20.1); Calc. Creatinine Clearance 39 mL/min (70-130); Calcium 9.4 mg/dL (7.8-10.44); Carbon Dioxide 24 mmol/L (23-31); Chloride 101 mmol/L (98-107); Estimated GFR-MDRD 33
[2017-06-21] MEDS: Spironolactone 25 MG TAB PO SCH (08:41)
[2017-06-21] MEDS: Carvedilol 6.25 MG TAB PO SCH ×2 (08:41→21:59)
[2017-06-21] MEDS: Furosemide 100 MG/10 ML VIAL SLOW IVP SCH (08:41)
[2017-06-21] MEDS: Fluticasone Propionate Nasal Spray 16 gm Bottle NASAL SCH (08:42)
--- NOTE | 2017-06-21 09:18 | PDOC.PN ---
- Subjective Encounter Start Date: 06/21/17 Encounter Start Time: 09:16 Ms. Guerrero was seen today in follow-up of acute on chronic systolic heart failure- She does not have any complaints today. She is breathing fine. - Objective MAR Reviewed: Yes Vital Signs & Weight: Vital Signs (12 hours) Temp Pulse Resp BP BP Pulse Ox 06/21/17 08:48 97.0 F L 74 20 96 06/21/17 08:41 108/62 06/21/17 08:37 97.0 F L 74 20 108/62 96 06/21/17 04:00 96.3 F L 77 20 100/56 L 90 L Weight Admit Weight 247 lb 4.8 oz Weight 236 lb 14.4 oz I&O: 06/20/17 06/21/17 06/22/17 06:59 06:59 06:59 Intake Total 1080 900 Output Total 2190 1350 Balance -1110 -450 Result Diagrams: 06/19/17 06:35 06/21/17 05:46 Phys Exam - Physical Examination HEENT: PERRLA Respiratory: no wheezing, no rales, no rhonchi, clear to auscultation bilateral Cardiovascular: RRR, no significant murmur Gastrointestinal: soft, non-tender, positive bowel sounds Musculoskeletal: edema present 2-3 + pitting edema + oozing from a skin opening on the right lower extremity Dx/Plan (1) FIDELIA (acute kidney injury) Code(s): N17.9 - ACUTE KIDNEY FAILURE, UNSPECIFIED Status: Acute (2) Non-ischemic cardiomyopathy Code(s): I42.8 - OTHER CARDIOMYOPATHIES Status: Chronic Comment: Likley due to ChemoRx for Breast CA (3) Acute on chronic combined systolic and diastolic congestive heart failure Code(s): I50.43 - ACUTE ON CHRONIC COMBINED SYSTOLIC AND DIASTOLIC HRT FAIL Status: Acute (4) Dyslipidemia Code(s): E78.5 - HYPERLIPIDEMIA, UNSPECIFIED Status: Chronic (5) HTN (hypertension) Code(s): I10 - ESSENTIAL (PRIMARY) HYPERTENSION Status: Chronic Qualifiers: Hypertension type: essential hypertension Qualified Code(s): I10 - Essential (primary) hypertension (6) Thrombocytopenia Code(s): D69.6 - THROMBOCYTOPENIA, UNSPECIFIED Status: Chronic - Plan * Acute on chronic systolic heart failure- she continues to diurese well, even after lower the dose of Lasix * Acute renal failure- improved overnight * Will continue Lasix once a day * HTN- blood pressure is stable * Thrombocytopenia- stable * Hopefully home in AM if renal function is stable.
[2017-06-21] MEDS: Atorvastatin Calcium 40 MG TAB PO SCH (21:59)
[2017-06-22 05:44] LABS: Anion Gap 18 mmol/L (10-20); BUN (Urea Nitrogen) 29 mg/dL (9.8-20.1); Calc. Creatinine Clearance 37 mL/min (70-130); Calcium 9.6 mg/dL (7.8-10.44); Carbon Dioxide 22 mmol/L (23-31); Chloride 102 mmol/L (98-107); Estimated GFR-MDRD 31
--- NOTE | 2017-06-22 07:33 | PDOC.PN ---
- Subjective Encounter Start Date: 06/22/17 Encounter Start Time: 07:30 Ms. Guerrero was seen today in follow-up of acute on chronicsystolic heart failure. She says she is feeling fine. She denies feeling short of breath. - Objective MAR Reviewed: Yes Vital Signs & Weight: Vital Signs (12 hours) Temp Pulse Resp BP BP Pulse Ox 06/22/17 05:28 92 L 06/22/17 04:00 98.6 F 68 16 94/69 92 L 06/21/17 21:59 125/67 06/21/17 20:00 97.4 F L 75 18 107/64 97 Weight Admit Weight 247 lb 4.8 oz Weight 236 lb 14.4 oz I&O: 06/21/17 06/22/17 06/23/17 06:59 06:59 06:59 Intake Total 900 1200 Output Total 1350 1525 Balance -450 -325 Result Diagrams: 06/19/17 06:35 06/22/17 04:38 Phys Exam - Physical Examination HEENT: PERRLA Respiratory: no wheezing, no rales, no rhonchi, clear to auscultation bilateral Cardiovascular: RRR, no significant murmur Gastrointestinal: soft, non-tender, positive bowel sounds Musculoskeletal: edema present 2+ pitting edema Dx/Plan (1) FIDELIA (acute kidney injury) Code(s): N17.9 - ACUTE KIDNEY FAILURE, UNSPECIFIED Status: Acute (2) Non-ischemic cardiomyopathy Code(s): I42.8 - OTHER CARDIOMYOPATHIES Status: Chronic Comment: Likley due to ChemoRx for Breast CA (3) Acute on chronic combined systolic and diastolic congestive heart failure Code(s): I50.43 - ACUTE ON CHRONIC COMBINED SYSTOLIC AND DIASTOLIC HRT FAIL Status: Acute (4) Dyslipidemia Code(s): E78.5 - HYPERLIPIDEMIA, UNSPECIFIED Status: Chronic (5) HTN (hypertension) Code(s): I10 - ESSENTIAL (PRIMARY) HYPERTENSION Status: Chronic Qualifiers: Hypertension type: essential hypertension Qualified Code(s): I10 - Essential (primary) hypertension (6) Thrombocytopenia Code(s): D69.6 - THROMBOCYTOPENIA, UNSPECIFIED Status: Chronic - Plan * Acute on chronic heart failure- patient continues to diurese, but her renal function is sensitive to Lasix * She wants to go home, and says she can follow-up with her primary care physician relatively soon * She is medically stable for discharge with close outpatient follow-up, and monitoring of her renal function * Will likely decrease her lasix to 40mg ever other day as she was not taking this medication on admission..
[2017-06-22] MEDS: Fluticasone Propionate Nasal Spray 16 gm Bottle NASAL SCH (09:38)
[2017-06-22] MEDS: Carvedilol 6.25 MG TAB PO SCH (09:39)
[2017-06-22] MEDS: Spironolactone 25 MG TAB PO SCH (09:40)
[2017-06-22] MEDS: Furosemide 100 MG/10 ML VIAL SLOW IVP SCH (09:45)
--- NOTE | 2017-06-22 09:45 | DIS ---
PRIMARY CARE PHYSICIAN: Dr. Hardwick DATE OF ADMISSION: 06/16/2017 DATE OF DISCHARGE: 06/22/2017 DISCHARGE DISPOSITION: Home. PRIMARY DISCHARGE DIAGNOSES: 1. Acute on chronic systolic heart failure. 2. Acute renal failure secondary to diuretics. 3. History of chronic diastolic heart failure. 4. Hypertension. 5. Nonischemic cardiomyopathy. 6. Hyperlipidemia. 7. Osteoarthritis. 8. Paroxysmal atrial fibrillation. 9. History of breast cancer. DISCHARGE MEDICATIONS: Lasix 40 mg and this will be every other day, spironolactone 25 mg daily, alexandre toprazole 20 mg daily, Zofran 8 mg q.8h. as needed, aspirin 81 mg daily, Xanax 0.5 mg twice a day and to continue carvedilol 6.25 mg twice daily, Atorvastatin 40 mg at bedtime. The patient is not being discharged on an JASMEET inhibitor and this is due to renal insufficiency. PROCEDURES DONE DURING ADMISSION: The patient had an echocardiogram which the ejection fraction was estimated at 25-30%. There was some E to A flow reversal suggestive of diastolic dysfunction. There is a pacemaker wire visualized in the right atrium. ALLERGIES: LISINOPRIL, LOSARTAN and MORPHINE. CODE STATUS: Full code. HOSPITAL COURSE: Ms. Guerrero is a pleasant 86-year-old female who presented to the emergency room com plaining of increasing lower extremity edema. She also noted some increasing dyspnea as well. She w as found to be in acute on chronic systolic as well as diastolic heart failure. The patient admits t hat over Thanksgiving she believes she over did it as far as her intake of both fluids and sodium. S he says normally she will overeat on the holiday and then will get back to normal the next day, but s he says she continued overeating for several days after Thanksgiving and believes that is what precip itated this event. She was treated with IV Lasix and diuresed well. In fact, her weight went from 2 45 pounds down to 239 at the time of discharge. It was noted that her creatinine increased from 1.5- 1.8 during her hospital stay and this was directly related to the IV Lasix administration. She was t old that she will need to follow up closely as an outpatient to have the renal function checked and h opefully within 1 week of discharge. The patient will also be evaluated by home health to drill rig operator helper i n the treatment of her lower extremity wounds which due to the chronic venous stasis and lower extrem ity edema.
--- NOTE | 2017-06-22 13:41 | PDOC.CTH ---
<Sulma Brewer - Last Filed: 06/22/17 13:39> Cardiology Progress Note - Subjective The pt seen and examined. No overnight events. No cardiac complaints. She is still on 2LNC. She uses Home O2 as PRN. - Objective Vital Signs Temp Pulse Resp BP BP Pulse Ox 06/22/17 09:39 102/60 06/22/17 05:28 92 L 06/22/17 04:00 98.6 F 68 16 94/69 92 L Admit Weight 247 lb 4.8 oz Weight 239 lb 06/21/17 06/22/17 06/23/17 06:59 06:59 06:59 Intake Total 900 1200 Output Total 1350 1525 Balance -450 -325 - Physical Examination General/Neuro: alert & oriented x3 Neck: no JVD present Lungs: other: (diminished at bases) Heart: RRR Abdomen: soft Extremities: other: (3 pitting edemas) - Telemetry Telemetry Rhythm: SR - Labs Result Diagrams: 06/19/17 06:35 06/22/17 04:38 Troponin/CKMB CK-MB (CK-2) 3.3 ng/mL (0-6.6) 06/16/17 18:33 Troponin I 0.084 ng/mL (< 0.028) H 06/17/17 04:43 - Assessment/Plan 1. 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 Non-ischemic cardiomyopathy Likley due to Chemo Rx for Breast Ca with AICD - 3. BLE Edema - improving with diuretic; cont. current medication 4. FIDELIA - stable; cont. monitor; No JASMEET due to Renal insufficiency 5. HTN - stable with current medication 6. Dyslipidemia - on statin 7. Breast Ca with s/p mastectomy and Radiation tx. 8. obesity MAR reviewed From Cardiac standpoint, the pt is stable to d/c home; She reports that she uses Home O2 as PRN at home. The pt will f/u with her Rn Field within 1-2 wks. Review of Systems - Review of Systems Constitutional: reports: no symptoms reported EENTM: reports: no symptoms reported Respiratory: reports: see HPI Cardiac (ROS): reports: no symptoms reported ABD/GI: reports: no symptoms reported : reports: no symptoms reported Musculoskeletal: reports: no symptoms reported Skin: reports: no symptoms reported <Ashlie Limon - Last Filed: 06/22/17 15:03> Cardiology Progress Note - Objective Vital Signs Temp Pulse Resp BP BP BP Pulse Ox 06/22/17 12:00 97.3 F L 74 18 112/71 06/22/17 09:39 102/60 06/22/17 08:00 97.3 F L 74 18 102/60 95 06/22/17 05:28 92 L 06/22/17 04:00 98.6 F 68 16 94/69 92 L Admit Weight 247 lb 4.8 oz Weight 239 lb 06/21/17 06/22/17 06/23/17 06:59 06:59 06:59 Intake Total 900 1200 Output Total 1350 1525 Balance -450 -325 - Labs Result Diagrams: 06/19/17 06:35 06/22/17 04:38 Troponin/CKMB CK-MB (CK-2) 3.3 ng/mL (0-6.6) 06/16/17 18:33 Troponin I 0.084 ng/mL (< 0.028) H 06/17/17 04:43 - Assessment/Plan Pt. seen and eval. by me. I agree with the A/P by the SCIENCE PROFESSOR. She continues to have lower extremity edema. I discussed fluid restriction with her. I will see her back in the office in about 1 month.
[2017-06-22 16:31] VITALS: BP 118/60; TEMP 97.4
== END 2017-06-22 16:30 | disposition home or self-care (01) | DRG 291 ==
LOC: ERS 17:53 → 2NO 20:30
PROVIDERS: ADMIT Internal Medicine; ATTEND Internal Medicine
DX: I13.0 Hypertensive heart and chronic kidney disease with heart failure and stage 1 through stage 4 chronic kidney disease, or unspecified chronic kidney disease (principal); I50.43 Acute on chronic combined systolic (congestive) and diastolic (congestive) heart failure; N17.9 Acute kidney failure, unspecified; D69.6 Thrombocytopenia, unspecified; I42.7 Cardiomyopathy due to drug and external agent; I48.0 Paroxysmal atrial fibrillation; K21.9 Gastro-esophageal reflux disease without esophagitis; I87.8 Other specified disorders of veins; M19.90 Unspecified osteoarthritis, unspecified site; F41.8 Other specified anxiety disorders; N18.9 Chronic kidney disease, unspecified; E66.9 Obesity, unspecified; E78.5 Hyperlipidemia, unspecified; Z88.5 Allergy status to narcotic agent; Z88.8 Allergy status to other drugs, medicaments and biological substances; Z95.810 Presence of automatic (implantable) cardiac defibrillator; Z85.3 Personal history of malignant neoplasm of breast; Z79.82 Long term (current) use of aspirin; Z96.649 Presence of unspecified artificial hip joint; Z68.38 Body mass index [BMI] 38.0-38.9, adult; Z92.3 Personal history of irradiation; Z90.10 Acquired absence of unspecified breast and nipple; Z86.718 Personal history of other venous thrombosis and embolism; T45.1X5A Adverse effect of antineoplastic and immunosuppressive drugs, initial encounter
CPT/HCPCS: 36415; 71010; 80048; 80053; 82550; 82553; 83690; 83735; 83880; 84484; 84550; 85025; 93005; 93306; 93798; 93970; 96374; A4216; J1940; J2405; Q0162

== ENCOUNTER 2017-07-28 09:02 | Inpatient (IN) | payer MEDICARE, BC ==
[2017-07-28] MEDS ORDERED: Ondansetron HCl/PF 4 MG/2 ML Vial ONE (09:25)
[2017-07-28 09:42] LABS: #Eosinphils 0.2 thou/uL (0.0-0.7); #Lymphocytes 1.8 thou/uL (1.20-3.40); #Monocytes 0.4 thou/uL (0.11-0.59); #Neutrophils 3.5 thou/uL (1.40-6.50); %Basophils 0.5 % (0.0-1.0); %Eosinophils 2.9 % (0.0-10.0); %Lymphocytes 30.6 % (21.0-51.0); %Monocytes 7.2 % (0.0-10.0); %Neutrophils 58.8 % (42.0-75.0); Hemoglobin 13.4 g/dL (12.0-16.0); Mean Corpuscular HGB CONC 29.8 g/dL (32.0-36.0); Mean Corpuscular Volume 90.3 fl (81.0-99.0); Mean Platelet Volume 10.9 fL (7.4-10.4); Platelet Count 75 thou/uL (130-400); RBC Distribution Width 22.6 % (11.5-14.5); Red Blood Cell (RBC) Count 4.97 mill/uL (4.20-5.40)
[2017-07-28 09:50] LABS: MDiff Complete? YES; PLT Morphology Comment Appears Decreased; Target Cells SLIGHT = 2-5 cells (100X) (0-1/hpf)
[2017-07-28 09:59] LABS: Troponin I 0.042 ng/mL (< 0.028)
[2017-07-28 10:03] LABS: ALT (SGPT) 22 U/L (8-55); AST (SGOT) 27 U/L (5-34); Albumin 3.6 g/dL (3.4-4.8); Alkaline Phosphatase 111 U/L (40-150); Anion Gap 19 mmol/L (10-20); BUN (Urea Nitrogen) 26 mg/dL (9.8-20.1); Bilirubin, Total 3.2 mg/dL (0.2-1.2); Calc. Creatinine Clearance 0 mL/min (70-130); Calcium 9.7 mg/dL (7.8-10.44); Carbon Dioxide 23 mmol/L (23-31); Chloride 102 mmol/L (98-107); Estimated GFR-MDRD 38; Globulin 3.9 g/dL (2.4-3.5); Glucose 106 mg/dL (83-110); Potassium 4.1 mmol/L (3.5-5.1); Protein, Total 7.5 g/dL (6.0-8.3); Sodium 140 mmol/L (136-145)
[2017-07-28] MEDS ORDERED: Furosemide 40 MG/4 ML VIAL ONE (10:28)
--- NOTE | 2017-07-28 10:39 | RAD ---
FRONTAL RADIOGRAPH CHEST: Date: 07-28-17 Comparison: 06-16-17 History: Dyspnea. FINDINGS: Stable prominence of the cardiac silhouette. Stable pulmonary vascular prominence. No pneumothorax, l obar consolidation or alveolar edema. Stable multi-lead transvenous pacing device. IMPRESSION: No acute findings - no interval change. POS: SASHA
[2017-07-28 14:07] LABS: Troponin I 0.081 ng/mL (< 0.028)
--- NOTE | 2017-07-28 14:48 | HP ---
DATE OF ADMISSION: 07/28/2017 CHIEF COMPLAINT: Shortness of breath. HISTORY OF PRESENT ILLNESS: This is an 86-year-old morbidly obese female who is maria l ing with her granddaughter, and for the past one week, she has been noticing worsening shortness of b reath and today she was unable to wake up from the bed and was extremely short of breath and call for the EMS. When the EMS arrived, the patient was having low saturations. The patient was recently ad mitted to the hospital for CHF exacerbation in the month of June, and has been gaining a lot of f luid according to her. She also mentioned about the breakdown of the skin of her lower extremities a nd was oozing fluid. The patient is also complaining of itching throughout the body, more on the ant erior part of the body. She does mention about having dry skin. She denies having any chest pain, n o nausea, no vomiting, but she is extremely short of breath. When she came to the ER, initially she was requiring rebreather mask. She was noted to have elevated troponin. The patient was also very t achycardic. Her renal functions were pretty depressed. A CT scan was not ordered and VQ was ordered by the ER. PAST MEDICAL HISTORY: 1. History of congestive heart failure. 2. Hypertension. 3. Morbid obesity. 4. History of nonischemic cardiomyopathy. 5. History of hyperlipidemia. 6. Osteoarthritis. 7. History of paroxysmal atrial fibrillation. 8. History of GERD. 9. History of breast cancer. PAST SURGICAL HISTORY: 1. Hip replacement. 2. Knee replacement. 3. AICD. MEDICATIONS: Medications have been reviewed and reconciled. Please see the medication list. ALLERGIES: LISINOPRIL, LOSARTAN, and MORPHINE. REVIEW OF SYSTEMS: All 12 systems are reviewed with the patient thoroughly and found to be negative at this time of systems. All other systems are reviewed thoroughly and found to be negative. The fo [facility] complete review of systems was negative, unless otherwise mentioned in the HPI or below: Constitutional: Weight loss or gain, sense of well-being, ability to conduct usual activities, exerc ise tolerance. Skin/Breast: Rash, itching, changes in hair growth or loss, nail changes, breast lumps, tenderness, swelling, nipple discharge. Eyes: Vision, double vision, tearing, blind spots, pain. ENT/Mouth: Headaches (location, time of onset, duration, precipitating factors), vertigo, lightheadedness, injury. Vision, double vision, tearing, blind spots, pain, nose b leeding, colds, obstruction, discharge, dental difficulties, gingival bleeding, dentures, neck stiffn ess, pain, tenderness, masses in thyroid or other areas Cardiovascular: Irregularly irregular heart rate and exertional dyspnea with no chest pain. Respiratory: Complaining of shortness of breath with orthopnea. Gastrointestinal: Poor appetite, dysphagia, indigestion, abdominal pain, heartburn, eructation, naus ea, vomiting, hematemesis, jaundice, constipation, or diarrhea, abnormal stools (oumou-colored, tarry, bloody, greasy, foul smelling), flatulence, hemorrhoids, recent changes in bowel habits. Genitourinary: Urgency, frequency, dysuria, nocturia, hematuria, polyuria, oliguria, unusual (or madelin nge in) color of urine, stones, hesitancy, change in size of stream, dribbling, acute retention or in continence, libido, potency. Musculoskeletal: Pain, swelling, redness or heat of muscles or joints, limitation, of motion, muscular weakness, atrophy, cramps. Neurologic/Psychiatric: Convulsions, paralyses, tremor, incoordination, parasthesias, difficulties w ith memory of speech, sensory or motor disturbances, or muscular coordination (ataxia, tremor), emoti onal problems, anxiety, depression, previous psychiatric care, unusual perceptions, hallucinations. Allergy/Immunologic: Skin rash, anemia, bleeding tendency, polydipsia, polyuria, intolerance to heat or cold. FAMILY HISTORY: The patient denies having any heart problems in the family. No other cancers in the family. SOCIAL HISTORY: The patient is not a known smoker. No history of alcohol or history of illicit drug use. PHYSICAL EXAMINATION: VITAL SIGNS: Blood pressures are 110/80, heart rate is 110, respiratory rate of 18, saturation 98% o n 4 liters. GENERAL: The patient is seen lying in the bed supine, does not appear to be in acute distress at thi s time. HEENT: Atraumatic, normocephalic. PERRLA. Extraocular movements were intact. Oral mucosa pink and moist. CARDIOVASCULAR: S1, S2 normal. No murmurs, rubs or gallops. LUNGS: Bilateral air entry was equal. No wheezing, no crackles. ABDOMEN: Soft and nontender. No guarding. No rebound tenderness. Bowel sounds normal. MUSCULOSKELETAL: No calf tenderness. No pedal edema. EXTREMITIES: No joint redness. No joint swelling. SKIN: No cyanosis, no erythema, no rash, no pallor. MUSCULOSKELETAL: The patient has massive pedal edema up to the 4+ both the knees with pitting type. No calf tenderness. No joint tenderness. No joint swelling. NECK: No JVD. No lymphadenopathy was noted. PSYCHIATRIC: No signs of suicidal ideation. No signs of jostin. LYMPHATICS: No evidence of any generalized lymphadenopathy was noted. LABORATORY DATA: Sodium 140, potassium 4.1, chloride 102, bicarbonate is 23, BUN is 26, creatinine 1 .56, blood sugar 106. Troponin 0.042. WBC 6.0, hemoglobin is 13.4, hematocrit 44.9, platelets of 75 . ASSESSMENT AND PLAN: 1. Acute congestive heart failure, likely diastolic dysfunction. 2. History of atrial fibrillation. 3. History of hypertension. 4. Morbid obesity. 5. Acute thrombocytopenia. 6. Acute kidney injury on chronic kidney disease stage 3. 7. NSTEMI. PLAN: 1. Plan is to admit this patient on telemetry as the patient is breathing on 4 liters at this time. We will closely monitor. We will start the patient on Lasix at 40 mg IV b.i.d. and we will progress ively increase diuresis as blood pressures are tolerating. We will start the patient on spironolacto ne 12.5 mg p.o. daily. The patient could not be given JASMEET inhibitors because of the allergy to JASMEET i nhibitors and ARB. 2. The patient has elevated troponins, most likely this could be from the demand ischemia from conge stive heart failure. We will closely monitor. We will start the patient on aspirin and also beta bl ocker to slow down the heart rate. 3. The patient has elevated D-dimer and was acutely short of breath in the ER. We will do a VQ scan to rule out any evidence of pulmonary embolism as the patient is poorly mobile. The patient could b e having a pulmonary embolism. We will get 2D echo to look for any evidence of wall motion abnormali ties. 4. The patient has mild thrombocytopenia. We will closely monitor at this time. We will hold off o n the Lovenox for anticoagulation. 5. Hypertension. The patient has low blood pressures currently. We will closely monitor the patien t. 6. We will hold off on the blood pressure medications. 7. The patient is morbidly obese. The patient would need a physical therapy evaluation to see if th e patient could be sent for rehab or shelter facility following this acute exacerbation. 8. We will consult Cardiology as the patient has a severe congestive heart failure. 9. DVT prophylaxis. SCDs to transition. I spent 75 minutes with this patient.
--- NOTE | 2017-07-28 17:09 | NM ---
NUCLEAR MEDICINE VENTILATION PERFUSION SCAN: (V/Q SCAN) 07/28/17 HISTORY: 86-year-old female with dyspnea. TECHNIQUE: Xenon-133 gas dose: 9.0 millicuries. Ci49f-VYS dose: 5.4 millicuries. The patient inhaled Xenon-133 gas, and dynamic ventilation scintigraphy was performed. Lx14g-YRV was injected IV, and multiple perfusion scintigraphic views were obtained. FINDINGS: There is a moderate sized wedge-shaped perfusion defect at the right middle lobe without a correspond ing match on the ventilation scan. No other ventilation/perfusion mismatches are identified. IMPRESSION: A single moderate-sized ventilation/perfusion mismatch in the right middle lobe. This is at least an intermediate probability for pulmonary thromboembolism. LUIS Joseph POS: SKYE
[2017-07-28 17:22] LABS: Troponin I 0.251 ng/mL (< 0.028)
[2017-07-28] MEDS ORDERED: Bisacodyl 5 MG TAB PO PRN (18:17)
[2017-07-28] MEDS ORDERED: Ondansetron ODT 4 MG TAB PO PRN (18:17)
[2017-07-28] MEDS ORDERED: Ondansetron HCl/PF 4 MG/2 ML Vial IVP PRN (18:17)
[2017-07-28] MEDS ORDERED: Acetaminophen 325 MG TAB PO PRN (18:17)
[2017-07-28] MEDS ORDERED: Furosemide 40 MG/4 ML VIAL SLOW IVP SCH (18:45)
[2017-07-28] MEDS ORDERED: Sodium Chloride 0.9% 10 ML ONE (19:04)
[2017-07-28] MEDS: HYDROcodone/Acetaminophen 5/325 mg Tablet PO PRN (19:20)
[2017-07-28] MEDS: ALPRAZolam 0.5 MG TAB PO PRN (19:24)
[2017-07-28] MEDS: Atorvastatin Calcium 40 MG TAB PO SCH (21:53)
[2017-07-28] MEDS: Docusate 100 MG CAP PO SCH (21:54)
[2017-07-28] MEDS: Carvedilol 3.125 MG TAB PO SCH (21:54)
[2017-07-28] MEDS: Famotidine/PF 20 mg/2ml Vial SLOW IVP SCH (21:54)
[2017-07-29 05:38] LABS: Anion Gap 22 mmol/L (10-20); BUN (Urea Nitrogen) 27 mg/dL (9.8-20.1); Calc. Creatinine Clearance 52 mL/min (70-130); Calcium 9.4 mg/dL (7.8-10.44); Carbon Dioxide 19 mmol/L (23-31); Chloride 106 mmol/L (98-107); Estimated GFR-MDRD 40; Glucose 70 mg/dL (83-110); Potassium 5.9 mmol/L (3.5-5.1); Sodium 141 mmol/L (136-145)
[2017-07-29] MEDS: Furosemide 40 MG/4 ML VIAL SLOW IVP SCH ×2 (05:48→17:54)
[2017-07-29 06:57] LABS: Anisocytosis SLIGHT = 6-15 cells (100X) (0-5/hpf); Band 2 % (5-11); Eosinophils 4 % (0-10); Hemoglobin 14.2 g/dL (12.0-16.0); Lymphocytes 26 % (21-51); MDiff Complete? YES; Mean Corpuscular HGB CONC 29.2 g/dL (32.0-36.0); Mean Corpuscular Hemoglobin 27.1 pg (27.0-31.0); Mean Platelet Volume 12.3 fL (7.4-10.4); Monocytes 4 % (0-10); Neutrophil 64 % (42-75); PLT Morphology Comment Appears Decreased; Platelet Count 95 thou/uL (130-400); RBC Distribution Width 22.9 % (11.5-14.5); Red Blood Cell (RBC) Count 5.24 mill/uL (4.20-5.40); Target Cells SLIGHT = 2-5 cells (100X) (0-1/hpf); White Blood Cell (WBC) Count 6.3 thou/uL (4.8-10.8)
[2017-07-29] MEDS ORDERED: Enoxaparin Sodium 40 MG/0.4 ML SYRINGE SC SCH (09:00)
[2017-07-29] MEDS: Famotidine/PF 20 mg/2ml Vial SLOW IVP SCH ×2 (09:07→21:50)
[2017-07-29] MEDS: Docusate 100 MG CAP PO SCH ×2 (09:07→21:50)
[2017-07-29] MEDS: Carvedilol 3.125 MG TAB PO SCH ×2 (09:08→21:50)
[2017-07-29] MEDS: Spironolactone 25 MG TAB PO SCH (09:08)
[2017-07-29] MEDS: HYDROcodone/Acetaminophen 5/325 mg Tablet PO PRN ×2 (09:12→21:50)
[2017-07-29 10:22] VITALS: BMI 43.2
[2017-07-29] MEDS: ALPRAZolam 0.5 MG TAB PO PRN ×2 (10:49→21:51)
[2017-07-29] MEDS: Atorvastatin Calcium 40 MG TAB PO SCH (21:50)
[2017-07-29] MEDS: Apixaban 5 MG TAB PO SCH (21:57)
--- NOTE | 2017-07-29 22:17 | CON ---
DATE OF CONSULTATION: 07/29/2017 ROOM NUMBER: [id number]. PRIMARY CERTIFIED PERSONAL FINANCE COUNSELOR: Dr. Priya Limon. PRIMARY DOCTOR: [facility], Dr. Breezy Wang. REASON FOR CARDIOLOGY CONSULTATION: Congestive heart failure. HISTORY OF PRESENT ILLNESS: Ms. Guerrero is an 86-year-old -[place] female with a significant medical history of systolic and diastolic heart failure with an EF of 20% to 30% and grade III diastolic dysfunction in 06/2017 , nonischemic cardiomyopathy with status post AICD placement, chronic bilateral lower extremity edema, chronic kidney disease, hypertension, and breast cancer with status post mastectomy and radiation treatment. Patient was hospitalized in 06/2017 due to acute on chronic combined congestive heart failure. She was transferred to [facility] for rehabilitation. Yesterday, she was having anxiety attack and started having itchiness to her back, which caused by anxiety. The patient called the nurses several times for the help and further treatment. However, nobody presented to her bedside or for evaluation or treatment so that the patient decided to call 911 for extra help. When EMS presented to her facility, they found the patient had some clear drainage from bilateral lower extremities. The patient was transferred to the [facility] for further evaluation and treatment. During those episodes, patient denies chest pain or discomfort in her chest, palpitation, or fluttering, shortness breath, nauseated, or vomiting, diaphoresis, or any other cardiac symptoms. When patient arrived to the emergency department, patient was found to have severe shortness of breath for short period of time, per her primary care reports. The patient was found to have high level of the D-dimer and the patient's VQ scan revealed intermediate probability for pulmonary embolism. According to the patient's family reports, patient has been short- winded with exercise with PTs and walking with a walker. Today, however, when the patient exercised and walked with the physical therapies, patient's O2 sat was 100% with room air. Patient denies any chest pain or other cardiac complaints during the exercise with the physical therapist today. The patient also had several episodes of SVTs during this admission. The last episode was 15 beats with heart rate of 120 at 1538 today. The patient was asymptomatic during at that time. This patient's last echocardiogram was done in 06/2017, which revealed EF of 25 % to 30%, moderate left ventricular enlargement, left ventricular function was severely depressed, mild right atrium enlargement, severe mitral valve regurgitation, moderate to severe tricuspid regurgitation. She never had any other cardiac study at this moment. During the Cardiology initial assessment, patient denies shortness of breath, chest pain or discomfort or palpitations, fluttering in her chest, or any other cardiac symptoms. PAST MEDICAL HISTORY: 1. Severe combined heart failure. 2. Nonischemic cardiomyopathy. 3. Hypertension. 4. Paroxysmal atrial fibrillation. 5. Morbid obesity with poorly mobilized. 6. History of breast cancer with status post mastectomy and radiation treatment. 7. Chronic kidney disease. 8. Chronic bilateral lower extremity edema. 9. Hyperlipidemia. PAST SURGICAL HISTORY: 1. Hip replacement. 2. Knee replacement. 3. AICD placement. FAMILY HISTORY: There is no significant family history of coronary artery disease, hypertension, diabetes, CVA, or hyperlipidemia in her family. SOCIAL HISTORY: Before she was transferred to [place] for rehabilitation; she used to live with her granddaughter. Patient's only daughter lives in [place] and well. She comes to see the patient every weekend. The patient denies any smoking, ETOH, or illicit drug abuse. ALLERGIES: She is allergic to LISINOPRIL, LOSARTAN and MORPHINE. HOME MEDICATIONS: Aspirin 81 mg once a day, Xanax 0.5 mg 3 times a day as needed, spironolactone 25 mg once a day, Protonix 20 mg once a day, Zofran 8 mg q.8 hours as neede, Lasix 40 mg every other day, atorvastatin 40 mg once a day, carvedilol 6.25 mg twice a day. REVIEW OF SYSTEMS: The following complete review of systems was negative, unless otherwise mentioned in the HPI or below. Constitutional: Weight loss or gain, sense of well being, ability to conduct usual activities, exercise tolerance. Skin: Positive for skin care to left rudolph, possible skin care or drainage to without right lower extremity; however, able to assess due to dressing to the site at this moment and itching to her back due to anxiety, but denied rash, and nail change, or breast lump, tenderness, swelling, nipple discharge. Eyes: Vision changes, double vision, tearing, blind spots, or pain. HEENT: Headache, vertigo, lightheadedness, nose bleeding, cold, obstruction, discharge, dental difficulties, gingival bleeding. Neck: Neck stiffness, pain, tenderness, or mass in the thyroid or other areas. Cardiovascular: Precordial pain, substernal distress, palpitations, syncope, orthopnea, nocturnal dyspnea, cyanosis, heart murmurs, claudication, but positive for 2 dyspnea on exertion and heart murmur. Respiratory: Shortness of breath, wheezing, stridor, cough, hemoptysis, fever, or night sweats. Gastrointestinal: Poor appetite, dysphagia, indigestion, abdominal pain, heartburn, eructation, nausea, vomiting, jaundice, constipation, or diarrhea, abnormal stool, recent change in the bowel habit. Genitourinary: Urgency, frequency, dysuria, nocturia, hematuria, polyuria, oliguria, unusual color of urine. Musculoskeletal: She uses a walker, but denied pain, swelling, redness , or heat of muscles or joints, limitation of motion, muscular weakness. Neurologic: Seizure conversion paralysis, tremor, incoordination. Psychiatric : Emotional problem, but positive for severe anxiety. PHYSICAL EXAMINATION: VITAL SIGNS: Blood pressure 128/83, heart rate 86 with sinus rhythm with a left bundle branch and intermediate AV paced, respiratory rate 16, O2 sat 99% with room air, temperature 97.4. GENERAL: Well-developed, well-nourished without any acute distress. HEAD: Normocephalic, atraumatic. EYES: Extraocular muscle movement intact. ENT: Oral and nasal mucosa are moist without lesion. NECK: No JVD. Neck is supple and normal range of motion. LUNGS: Clear to auscultation bilaterally, but very diminished at the bases. No wheezing, rales, or rhonchi noted. CARDIOVASCULAR: Regular rate and rhythm, normal S1, S2. There are no S3, S4. No significant murmur to auscultate because of her obesity. No hives, thrill, bruits noted. There are 2+ pulses in the dorsal pedis and posterior tibial. Carotid pulse present without bruits or thrill. There is 3 to 4+ pitting edema to the bilateral lower extremities. ABDOMEN: Soft, nontender or mass to palpate. Bowel sounds are present. MUSCULOSKELETAL: Patient able to move all extremities. SKIN: There is one skin tear to the left rudolph and she also have a dressing to the right lower extremity. NEUROLOGIC: Alert, oriented x4, awake. Normal affect. Nonfocal. PSYCHIATRIC: Mood and affect are normal. LABORATORY DATA AND X-RAY FINDINGS: EKG shows sinus rhythm with left bundle branch block. WBC 6.3, hemoglobin 14.2, hematocrit 48.7, platelets 95, which was 75 yesterday. D-dimer 0.79. Sodium of 141, potassium 5.9, BUN 27, creatinine 1.49, which was 1.56 yesterday. CK-MB 2.0, troponin 0.042, 0.081, 0.251. BNP is 783 and AST 27, ALT 22. The patient's VQ scan shows intermediate probability for pulmonary thromboembolism and the patient's chest x -ray shows no significant change from previous picture. ASSESSMENT AND PLAN: 1. Acute on chronic systolic and diastolic heart failure. Patient's condition is stable with room air at this time. She is on Lasix 40 mg IV push BID and spironolactone 12.5 mg once a day. She is on a beta olivier, but not on JASMEET inhibitor due to her allergy and also history of chronic kidney disease. At this moment, we like to continue current treatment. 2. Status post several episodes of SVTs, last one was today at 1530. Patient was asymptomatic during those episodes. We like to increase carvedilol 3.125 from twice a day to 3 times a day. We like to continue to monitor on telemetry. 3. Drainage from right lower extremity. Wound Care consult was already ordered. WBC is 6.3, which is stable. 4. Increased D-dimer level which was 0.79. VQ scan shows intermediate pulmonary embolism. At this moment, the patient is stable with room air. She denies any chest pain or shortness of breath. The patient is on Eliquis 10 mg twice a day for 7 days, then 5 mg twice a day for up to 6 months, which is managed by primary care doctor. Patient had echocardiogram on this admission and result is pending at this time. 5. Hypertension. Her blood pressure have been stable at this moment, we would like to continue to monitor. 6. Chronic kidney disease. Patient's current creatinine level has been no change. We like to continue to monitor. 7. Nonischemic cardiomyopathy secondary to possible chemo treatment for breast cancer. 8. AICD placement. 9. History of paroxysmal atrial fibrillation. On telemetry, the patient heart rhythm remains in a sinus rhythm. We like to continue to monitor on telemetry. 10. Hyperlipidemia. The patient is on statin. Thank you very much for allowing Cardiology Service to participate in the care of this patient. We will follow along with the patient care team and make further recommendations as appropriate. HALEY
--- NOTE | 2017-07-30 00:48 | CON ---
DATE OF CONSULTATION: 07/29/2017 DATE OF ADMISSION: 07/28/2017 INDICATION FOR CONSULTATION: This is an 86-year-old female with an elevated cardiac enzymes and tachycardia. Please refer to the notes already dictated by the nurse practitioner, Sulma. HISTORY OF PRESENT ILLNESS: This is an 86-year-old female that I have seen in the past. She resides in a retirement. She has had lower extremity edema. She has severe cardiomyopathy. She had an AICD placed. She was at the retirement and apparently called 911, and she said that she was not getting enough help at her room. When they arrived, they noted that she had significant lower extremity edema. She has ulcerations, which have not yet healed and she was brought to the emergency room. She was also found to have slight elevation of the cardiac enzymes. She denied any chest pain. She denies any shortness of breath at this time and overall appears to be relatively stable with a cardiomyopathy. Echocardiogram does indicate severe cardiomyopathy within this lady. She has a history of an AICD. She has had apparently some, I believe, DVTs in the past, but at this time, her lower extremity edema appears to be mainly due to her congestive heart failure. She has had some history also of a left ventricular thrombus. At this time, she is relatively stable without complaints. She said she continues to have lower extremity edema. For her past medical history, social history, review of systems, allergies, medications, please refer to the notes dictated by the nurse practitioner. PHYSICAL EXAMINATION: GENERAL: Reveals an elderly female, who is in no acute distress at this time. She is alert. She is oriented. VITAL SIGNS: Her blood pressure is 121/81, heart rate is in the 80s, appears to be regular at this time, respiratory rate is 18. She is afebrile. HEENT: Reveals the head to be normocephalic, atraumatic. Carotid pulses appear to be present without any significant bruits. CHEST: Clear to auscultation. I did not hear any rales, rhonchi, or wheezing at this time. CARDIOVASCULAR: Exam appears to have a regular rhythm. There is occasional ectopy was noted. She does have a soft systolic murmur at the lower sternal border, also at the apex. There is a well-healed surgical incision over the left infraclavicular area after AICD implant. ABDOMEN: Shows obese with positive bowel sounds. No organomegaly or masses were noted. Femoral pulses are difficult to palpate due to the large pannus. EXTREMITIES: Showed 2-3+ lower extremity edema for the knees down and also involving the feet. Left lower leg is wrapped in a surgical compression dressing due to the edema as well as to the ulcerations. NEUROLOGIC: She appears to be relatively intact. She did not get out of bed for further evaluation, however. IMPRESSION: 1. Congestive heart failure exacerbation with lower extremity edema. 2. History of AICD implant due to nonischemic cardiomyopathy. 3. History of morbid obesity. 4. Hypertension. We will continue her present medications. 5. History of paroxysmal atrial fibrillation, which appears to be under good control at this time. 6. History of breast cancer for which she has seen Dr. Aguirre in the past. At this time, she has been started on diuretics, which I would agree with as long as her renal function remains stable. 7. Elevated cardiac enzymes, which most likely due to demand ischemia associated with the congestive heart failure. We will be more than happy to continue to follow the patient with you throughout this hospitalization. As far as her medical management is concerned, I would agree with the present medications. We will continue her aspirin and Coreg as well as furosemide and Aldactone. We will need to carefully follow her renal function. Her creatinine remains stable. Yesterday, the creatinine was 1.56. Today is 1.49. Her BNP was 783. We will also continue to monitor her cardiac enzymes and troponin I is still indeterminate, and CPK-MB was 2.0. MTDD
[2017-07-30 04:52] LABS: Anion Gap 19 mmol/L (10-20); BUN (Urea Nitrogen) 28 mg/dL (9.8-20.1); Calc. Creatinine Clearance 47 mL/min (70-130); Calcium 9.5 mg/dL (7.8-10.44); Carbon Dioxide 20 mmol/L (23-31); Chloride 106 mmol/L (98-107); Estimated GFR-MDRD 36; Glucose 76 mg/dL (83-110); Potassium 5.6 mmol/L (3.5-5.1); Sodium 139 mmol/L (136-145)
[2017-07-30 05:07] LABS: Eosinophils 2 % (0-10); Hemoglobin 13.2 g/dL (12.0-16.0); Lymphocytes 38 % (21-51); MDiff Complete? YES; Mean Corpuscular HGB CONC 30.3 g/dL (32.0-36.0); Mean Corpuscular Hemoglobin 27.7 pg (27.0-31.0); Mean Corpuscular Volume 91.2 fl (81.0-99.0); Mean Platelet Volume 14.6 fL (7.4-10.4); Metamyelocyte 1 % (0-0); Monocytes 9 % (0-10); Neutrophil 49 % (42-75); PLT Morphology Comment Appears Decreased; Platelet Count 74 thou/uL (130-400); RBC Distribution Width 22.4 % (11.5-14.5); Reactive Lymphocytes 1 % (0-10); Red Blood Cell (RBC) Count 4.79 mill/uL (4.20-5.40); White Blood Cell (WBC) Count 5.5 thou/uL (4.8-10.8)
[2017-07-30] MEDS: Furosemide 40 MG/4 ML VIAL SLOW IVP SCH ×2 (05:16→13:54)
[2017-07-30] MEDS: HYDROcodone/Acetaminophen 5/325 mg Tablet PO PRN ×2 (05:16→21:55)
[2017-07-30] MEDS: Famotidine/PF 20 mg/2ml Vial SLOW IVP SCH (09:10)
[2017-07-30] MEDS: Carvedilol 3.125 MG TAB PO SCH ×3 (09:11→21:55)
[2017-07-30] MEDS: Spironolactone 25 MG TAB PO SCH (09:11)
[2017-07-30] MEDS: Docusate 100 MG CAP PO SCH ×2 (09:11→21:55)
--- NOTE | 2017-07-30 11:54 | PDOC.PN ---
- Subjective Encounter Start Date: 07/29/17 Encounter Start Time: 10:00 Patient is seen today, alert and oriented. With her family friend at bedside, pt has improved edema but has lot more to go. Denies any SOB or chest pain. - Objective Resuscitation Status: Resuscitation Status FULL:Full Resuscitation MAR Reviewed: Yes Vital Signs & Weight: Vital Signs (12 hours) Temp Pulse Resp BP BP Pulse Ox 07/30/17 09:15 88 16 124/62 07/30/17 03:58 97.7 F 83 18 110/85 94 L Weight Admit Weight 266 lb 14.4 oz Weight 263 lb 11.2 oz I&O: 07/29/17 07/30/17 07/31/17 06:59 06:59 06:59 Intake Total 720 2280 Output Total 1150 850 Balance -430 1430 Result Diagrams: 07/30/17 04:31 07/30/17 04:31 Radiology Reviewed by me: Yes Phys Exam - Physical Examination HEENT: PERRLA, moist MMs Neck: no nodes, no JVD Respiratory: wheezing present Cardiovascular: RRR, no significant murmur Gastrointestinal: soft, non-tender Musculoskeletal: edema present Neurological: non-focal, normal sensation, moves all 4 limbs Lymphatic: no nodes Psychiatric: normal affect, A&O x 3 Dx/Plan (1) Hyperkalemia Code(s): E87.5 - HYPERKALEMIA Status: Acute Comment: will do Kayxalate, will monitor slolwy. (2) Pulmonary embolism Code(s): I26.99 - OTHER PULMONARY EMBOLISM WITHOUT ACUTE COR PULMONALE Status : Acute Comment: Intermediate probability from Vq mismatch on right lung, Pt is started on Eliquis 10mg po BID for 1 week and changed to 5mg PO BID. (3) AICD (automatic cardioverter/defibrillator) present Code(s): Z95.810 - PRESENCE OF AUTOMATIC (IMPLANTABLE) CARDIAC DEFIBRILLATOR Status: Acute Comment: Continue with lasix with aggresive diuresis. Will monitor Closely for decompensation. (4) FIDELIA (acute kidney injury) Code(s): N17.9 - ACUTE KIDNEY FAILURE, UNSPECIFIED Status: Acute Comment: Will cotninue with Duresis, avoid nephrotoxic meds. (5) Acute on chronic combined systolic and diastolic congestive heart failure Code(s): I50.43 - ACUTE ON CHRONIC COMBINED SYSTOLIC AND DIASTOLIC HRT FAIL Status: Acute Comment: Patient will need aggresive diuresis, due to her age and renal fucntions, will treat with lasix and raise her legs with compresion stockings. (6) HTN (hypertension) Code(s): I10 - ESSENTIAL (PRIMARY) HYPERTENSION Status: Chronic Qualifiers: Hypertension type: essential hypertension Qualified Code(s): I10 - Essential (primary) hypertension Comment: will controlled, added spironolactone. (7) Obesity (BMI 30-39.9) Code(s): E66.9 - OBESITY, UNSPECIFIED Status: Chronic - Plan cont current plan of care, plan discussed w/ family, leo catheter, PT/OT, respiratory therapy, incentive spirometry, out of bed/ambulate, DVT proph w/SCDs * . - Discharge Day Encounter end time: 10:30 Review of Systems - Review of Systems Eyes: negative: Pain, Vision Change, Conjunctivae Inflammation, Eyelid Inflammation, Redness, Other ENT: negative: Ear Pain, Ear Discharge, Nose Pain, Nose Discharge, Nose Congestion, Mouth Pain, Mouth Swelling, Throat Pain, Throat Swelling, Other Respiratory: Cough, Shortness of Breath, SOB with Excertion, Wheezing Cardiovascular: orthopnea, paroxysmal nocturnal dyspnea, edema Gastrointestinal: negative: Nausea, Vomiting, Abdominal Pain, Diarrhea, Constipation, Melena, Hematochezia, Other Genitourinary: negative: Dysuria, Frequency, Incontinence, Hematuria, Retention , Other Musculoskeletal: negative: Neck Pain, Shoulder Pain, Arm Pain, Back Pain, Hand Pain, Leg Pain, Foot Pain, Other Skin: Rash (dry skin on leg and back.). negative: Lesions, Miguel, Bruising, Other - Medications/Allergies Allergies/Adverse Reactions: Allergies Allergy/AdvReac Type Severity Reaction Status Date / Time lisinopril Allergy Mild Verified 07/28/17 18:34 losartan Allergy Verified 07/28/17 18:34 morphine Allergy Verified 07/28/17 18:34 Medications: Current Medications Acetaminophen (Tylenol) 650 mg PO Q4H PRN PRN Reason: Headache/Fever or Pain Hydrocodone Bitart/Acetaminophen ([place] 5/325) 1 tab PO Q4H PRN PRN Reason: Moderate Pain (4-6) Last Admin: 07/30/17 05:16 Dose: 1 tab Alprazolam (Xanax) 0.5 mg PO TID PRN PRN Reason: Anxiety Last Admin: 07/29/17 21:51 Dose: 0.5 mg Apixaban (Eliquis) 10 mg PO BID [facility] Stop: 08/05/17 21:01 Last Admin: 07/29/17 21:57 Dose: 10 mg Apixaban (Eliquis) 5 mg PO BID [facility] Aspirin (Aspirin Chewable) 81 mg PO DAILY [facility] Last Admin: 07/29/17 09:08 Dose: 81 mg Atorvastatin Calcium (Lipitor) 40 mg PO HS [facility] Last Admin: 07/29/17 21:50 Dose: 40 mg Bisacodyl (Dulcolax) 10 mg PO DAILYPRN PRN PRN Reason: Constipation Carvedilol (Coreg) 3.125 mg PO TID [facility] Last Admin: 07/30/17 09:11 Dose: 3.125 mg Docusate Sodium (Colace) 100 mg PO BID [facility] Last Admin: 07/30/17 09:11 Dose: 100 mg Famotidine (Pepcid) 20 mg SLOW IVP Q12HR [facility] Last Admin: 07/30/17 09:10 Dose: 20 mg Furosemide (Lasix) 40 mg SLOW IVP 0600,1400 [facility] Last Admin: 07/30/17 05:16 Dose: 40 mg Ondansetron HCl (Zofran Odt) 4 mg PO Q6H PRN PRN Reason: Nausea/Vomiting Ondansetron HCl (Zofran) 4 mg IVP Q6H PRN PRN Reason: Nausea/Vomiting Spironolactone (Aldactone) 12.5 mg PO DAILY [facility] Last Admin: 07/30/17 09:11 Dose: 12.5 mg
--- NOTE | 2017-07-30 12:01 | PDOC.PN ---
- Subjective Encounter Start Date: 07/30/17 Encounter Start Time: 11:00 Patient is seen today, alert and oriented. She is c/o itching of her back and her edema is improving. - Objective Resuscitation Status: Resuscitation Status FULL:Full Resuscitation MAR Reviewed: Yes Vital Signs & Weight: Vital Signs (12 hours) Temp Pulse Resp BP BP Pulse Ox 07/30/17 09:15 88 16 124/62 07/30/17 03:58 97.7 F 83 18 110/85 94 L Weight Admit Weight 266 lb 14.4 oz Weight 263 lb 11.2 oz I&O: 07/29/17 07/30/17 07/31/17 06:59 06:59 06:59 Intake Total 720 2280 Output Total 1150 850 Balance -430 1430 Result Diagrams: 07/30/17 04:31 07/30/17 04:31 Radiology Reviewed by me: Yes Phys Exam - Physical Examination HEENT: PERRLA, moist MMs Neck: no nodes, no JVD, supple Respiratory: wheezing present Cardiovascular: RRR, no significant murmur Gastrointestinal: soft, non-tender Musculoskeletal: edema present (Bilateral lower extremity with 4 +) Neurological: non-focal, normal sensation rales noted bilaterally. Dx/Plan (1) Hyperkalemia Code(s): E87.5 - HYPERKALEMIA Status: Acute Comment: will do Kayxalate again today, if persistantly high will hold of Spironaclone, will monitor slolwy. (2) Pulmonary embolism Code(s): I26.99 - OTHER PULMONARY EMBOLISM WITHOUT ACUTE COR PULMONALE Status : Acute Comment: Intermediate probability from Vq mismatch on right lung, Pt is started on Eliquis 10mg po BID for 1 week and changed to 5mg PO BID.stbale. (3) AICD (automatic cardioverter/defibrillator) present Code(s): Z95.810 - PRESENCE OF AUTOMATIC (IMPLANTABLE) CARDIAC DEFIBRILLATOR Status: Acute Comment: Continue with lasix with aggresive diuresis. Will monitor Closely for decompensation. (4) FIDELIA (acute kidney injury) Code(s): N17.9 - ACUTE KIDNEY FAILURE, UNSPECIFIED Status: Acute Comment: Will cotninue with Duresis, avoid nephrotoxic meds. (5) Acute on chronic combined systolic and diastolic congestive heart failure Code(s): I50.43 - ACUTE ON CHRONIC COMBINED SYSTOLIC AND DIASTOLIC HRT FAIL Status: Acute Comment: Patient will need aggresive diuresis, due to her age and renal fucntions, will treat with lasix 40mg IV BID, showed Worsening BNP, cardiology on Board. (6) HTN (hypertension) Code(s): I10 - ESSENTIAL (PRIMARY) HYPERTENSION Status: Chronic Qualifiers: Hypertension type: essential hypertension Qualified Code(s): I10 - Essential (primary) hypertension Comment: will controlled, added spironolactone. (7) Obesity (BMI 30-39.9) Code(s): E66.9 - OBESITY, UNSPECIFIED Status: Chronic - Plan cont current plan of care, PT/OT, respiratory therapy, incentive spirometry, DVT proph w/SCDs * . - Discharge Day Encounter end time: 11:35 Review of Systems - Review of Systems Eyes: negative: Pain, Vision Change, Conjunctivae Inflammation, Eyelid Inflammation, Redness, Other Respiratory: Cough, Shortness of Breath, SOB with Excertion Cardiovascular: orthopnea, paroxysmal nocturnal dyspnea, edema. negative: chest pain, palpitations, light headedness, other Gastrointestinal: negative: Nausea, Vomiting, Abdominal Pain, Diarrhea, Constipation, Melena, Hematochezia, Other Genitourinary: negative: Dysuria, Frequency, Incontinence, Hematuria, Retention , Other Musculoskeletal: negative: Neck Pain, Shoulder Pain, Arm Pain, Back Pain, Hand Pain, Leg Pain, Foot Pain, Other Skin: negative: Rash, Lesions, Miguel, Bruising, Other - Medications/Allergies Allergies/Adverse Reactions: Allergies Allergy/AdvReac Type Severity Reaction Status Date / Time lisinopril Allergy Mild Verified 07/28/17 18:34 losartan Allergy Verified 07/28/17 18:34 morphine Allergy Verified 07/28/17 18:34 Medications: Current Medications Acetaminophen (Tylenol) 650 mg PO Q4H PRN PRN Reason: Headache/Fever or Pain Hydrocodone Bitart/Acetaminophen ([place] 5/325) 1 tab PO Q4H PRN PRN Reason: Moderate Pain (4-6) Last Admin: 07/30/17 05:16 Dose: 1 tab Alprazolam (Xanax) 0.5 mg PO TID PRN PRN Reason: Anxiety Last Admin: 07/29/17 21:51 Dose: 0.5 mg Apixaban (Eliquis) 10 mg PO BID [facility] Stop: 08/05/17 21:01 Last Admin: 07/29/17 21:57 Dose: 10 mg Apixaban (Eliquis) 5 mg PO BID [facility] Aspirin (Aspirin Chewable) 81 mg PO DAILY [facility] Last Admin: 07/29/17 09:08 Dose: 81 mg Atorvastatin Calcium (Lipitor) 40 mg PO HS [facility] Last Admin: 07/29/17 21:50 Dose: 40 mg Bisacodyl (Dulcolax) 10 mg PO DAILYPRN PRN PRN Reason: Constipation Carvedilol (Coreg) 3.125 mg PO TID [facility] Last Admin: 07/30/17 09:11 Dose: 3.125 mg Docusate Sodium (Colace) 100 mg PO BID [facility] Last Admin: 07/30/17 09:11 Dose: 100 mg Famotidine (Pepcid) 20 mg SLOW IVP Q12HR [facility] Last Admin: 07/30/17 09:10 Dose: 20 mg Furosemide (Lasix) 40 mg SLOW IVP 0600,1400 [facility] Last Admin: 07/30/17 05:16 Dose: 40 mg Ondansetron HCl (Zofran Odt) 4 mg PO Q6H PRN PRN Reason: Nausea/Vomiting Ondansetron HCl (Zofran) 4 mg IVP Q6H PRN PRN Reason: Nausea/Vomiting Spironolactone (Aldactone) 12.5 mg PO DAILY [facility] Last Admin: 07/30/17 09:11 Dose: 12.5 mg
--- NOTE | 2017-07-30 13:18 | PDOC.CTH ---
<Sulma Brewer - Last Filed: 07/30/17 13:16> Cardiology Progress Note - Subjective The pt seen and examined. No overnight events. No cardiac complaints. She walked to the room door with PT today. - Objective Vital Signs Temp Pulse Pulse Pulse Resp BP BP 07/30/17 11:00 96.7 F L 82 18 07/30/17 09:15 88 16 07/30/17 09:00 87 87 124/64 124/62 07/30/17 03:58 97.7 F 83 18 BP BP Pulse Ox 07/30/17 11:00 127/87 92 L 07/30/17 09:15 124/62 07/30/17 09:00 07/30/17 03:58 110/85 94 L Admit Weight 266 lb 14.4 oz Weight 263 lb 11.2 oz 07/29/17 07/30/17 07/31/17 06:59 06:59 06:59 Intake Total 720 2280 Output Total 1150 850 Balance -430 1430 - Physical Examination General/Neuro: alert & oriented x3 Neck: no JVD present Lungs: other: (diminished at bases) Heart: RRR Extremities: other: (3-4 pitting edemas) - Telemetry Telemetry Rhythm: SR w/ PVCs - Labs Result Diagrams: 07/30/17 04:31 07/30/17 04:31 Troponin/CKMB CK-MB (CK-2) 2.0 ng/mL (0-6.6) 07/28/17 09:12 Troponin I 0.251 ng/mL (< 0.028) H 07/28/17 16:55 - Assessment/Plan 1. Acute on chronic Combined HF - stable with Lasix 40mg IV BID; on BBlocker, but no JASMEET due to FIDELIA; 2. Pulmonary embolism - stable with RA; on Eliquis 10mg po BID for 1 week and changed to 5mg PO BID up to 6 months? 3. Non-ischemic CMY with AICD placement - stable 4. FIDELIA - slightly worsen today. 4. HTN - stable 5. Hyperkalemia - improving slowly; 6. BLL Edema - slowly improving 7. Hx of multiple SVTs - occasional PVCs; cont. monitor on tele MAR reviewed Review of Systems - Review of Systems Constitutional: reports: no symptoms reported EENTM: reports: no symptoms reported Respiratory: reports: no symptoms reported Cardiac (ROS): reports: no symptoms reported ABD/GI: reports: no symptoms reported : reports: no symptoms reported Musculoskeletal: reports: no symptoms reported <Ashlie Limon - Last Filed: 07/30/17 22:43> Cardiology Progress Note - Objective Vital Signs Temp Pulse Resp BP Pulse Ox 07/30/17 15:15 96.7 F L 87 20 118/64 94 L 07/30/17 11:00 96.7 F L 82 18 127/87 92 L Admit Weight 266 lb 14.4 oz Weight 263 lb 11.2 oz 07/29/17 07/30/17 07/31/17 06:59 06:59 06:59 Intake Total 720 2280 830 Output Total 3766 190 9935 Balance -430 1430 -670 - Labs Result Diagrams: 07/30/17 04:31 07/30/17 19:14 Troponin/CKMB CK-MB (CK-2) 2.0 ng/mL (0-6.6) 07/28/17 09:12 Troponin I 0.251 ng/mL (< 0.028) H 07/28/17 16:55 - Assessment/Plan Pt. seen and eval. by me . I agree with the A/P by the COLLECTOR OF INTERNAL REVENUE. The lower leg edema is slightl;y improved.
[2017-07-30] MEDS: Apixaban 5 MG TAB PO SCH ×2 (13:51→21:54)
[2017-07-30] MEDS: ALPRAZolam 0.5 MG TAB PO PRN ×2 (14:22→21:55)
[2017-07-30 19:34] LABS: Potassium 3.5 mmol/L (3.5-5.1)
--- NOTE | 2017-07-30 21:32 | ULT ---
LEFT UPPER EXTREMITY VENOUS DOPPLER 07/30/17 PROVIDED CLINICAL HISTORY: Left arm pain and swelling. FINDINGS: Patel scale and color doppler sonography with spectral analysis was performed of the left internal jug ular, subclavian, axillary, basilic, cephalic, brachial, radial and ulnar veins demonstrating a josé antonio l sonographic appearance to each. IMPRESSION: No sonographic evidence for left upper extremity deep venous thrombosis. POS: SASHA
[2017-07-30] MEDS: Atorvastatin Calcium 40 MG TAB PO SCH (21:55)
[2017-07-31 05:23] LABS: Eosinophils 6 % (0-10); Hemoglobin 13.3 g/dL (12.0-16.0); Lymphocytes 27 % (21-51); MDiff Complete? YES; Mean Corpuscular HGB CONC 30.3 g/dL (32.0-36.0); Mean Corpuscular Hemoglobin 27.7 pg (27.0-31.0); Mean Corpuscular Volume 91.3 fl (81.0-99.0); Monocytes 5 % (0-10); Neutrophil 62 % (42-75); Nucleated RBC 1 % (0); PLT Morphology Comment Appears Decreased; Platelet Count 77 thou/uL (130-400); RBC Distribution Width 22.1 % (11.5-14.5); Red Blood Cell (RBC) Count 4.79 mill/uL (4.20-5.40); White Blood Cell (WBC) Count 4.5 thou/uL (4.8-10.8)
[2017-07-31 05:29] LABS: Anion Gap 18 mmol/L (10-20); BUN (Urea Nitrogen) 26 mg/dL (9.8-20.1); Calc. Creatinine Clearance 51 mL/min (70-130); Calcium 8.9 mg/dL (7.8-10.44); Carbon Dioxide 22 mmol/L (23-31); Chloride 103 mmol/L (98-107); Estimated GFR-MDRD 40; Glucose 84 mg/dL (83-110); Potassium 4.2 mmol/L (3.5-5.1); Sodium 139 mmol/L (136-145)
[2017-07-31] MEDS: Furosemide 40 MG TAB PO SCH ×2 (05:44→16:33)
[2017-07-31] MEDS: ALPRAZolam 0.5 MG TAB PO PRN (05:44)
[2017-07-31] MEDS ORDERED: Famotidine 20 MG TAB PO SCH (09:00)
--- NOTE | 2017-07-31 11:16 | PDOC.CTH ---
<Sulma Brewer - Last Filed: 07/31/17 11:18> Cardiology Progress Note - Subjective The pt seen and examined. No overnight events. No cardiac complaints. She is drowsy from medication she administered last night for sleep/anxiety. - Objective Vital Signs Temp Pulse Resp BP BP Pulse Ox 07/31/17 08:00 97.3 F L 92 16 116/76 07/31/17 04:00 97.3 F L 97 15 108/70 95 Admit Weight 266 lb 14.4 oz Weight 260 lb 3.2 oz 07/30/17 07/31/17 08/01/17 06:59 06:59 06:59 Intake Total 2280 1310 Output Total 850 2150 Balance 1430 -840 - Physical Examination General/Neuro: alert & oriented x3 Neck: no JVD present Lungs: other: (diminished at bases) Heart: RRR Abdomen: soft Extremities: other: (3-4+ pitting bilat. edema) - Telemetry Telemetry Rhythm: SR 80-90s - Labs Result Diagrams: 07/31/17 04:24 07/31/17 04:24 Troponin/CKMB CK-MB (CK-2) 2.0 ng/mL (0-6.6) 07/28/17 09:12 Troponin I 0.251 ng/mL (< 0.028) H 07/28/17 16:55 - Assessment/Plan 1. Acute on chronic Combined HF - stable with Lasix 40mg IV BID; on BBlocker, but no JASMEET due to FIDELIA; 2. Pulmonary embolism - stable with RA; on Eliquis 10mg po BID for 1 week and changed to 5mg PO BID up to 6 months? 3. Non-ischemic CMY with AICD placement - stable 4. FIDELIA - slightly improving today. 4. HTN - stable 5. Hyperkalemia - devolved 6. BLL Edema - no changed from yesterday 7. Hx of multiple SVTs - occasional PVCs; cont. monitor on tele MAR reviewed * From cardiac standpoint, the pt is stable to tx to rehab. The pt will follow up with Dr Limon' office within 2-4 wks after she is discharged from rehab. Review of Systems - Review of Systems Constitutional: reports: see HPI EENTM: reports: no symptoms reported Respiratory: reports: no symptoms reported Cardiac (ROS): reports: no symptoms reported ABD/GI: reports: no symptoms reported : reports: no symptoms reported <Ashlie Limon - Last Filed: 07/31/17 14:53> Cardiology Progress Note - Objective Vital Signs Temp Pulse Resp BP BP Pulse Ox 07/31/17 12:00 97.6 F 89 12 110/64 07/31/17 08:00 97.3 F L 92 16 116/76 07/31/17 04:00 97.3 F L 97 15 108/70 95 Admit Weight 266 lb 14.4 oz Weight 260 lb 3.2 oz 07/30/17 07/31/17 08/01/17 06:59 06:59 06:59 Intake Total 2280 1310 Output Total 850 2150 Balance 1430 -840 - Labs Result Diagrams: 07/31/17 04:24 07/31/17 04:24 Troponin/CKMB CK-MB (CK-2) 2.0 ng/mL (0-6.6) 07/28/17 09:12 Troponin I 0.251 ng/mL (< 0.028) H 07/28/17 16:55 - Assessment/Plan Pt. seen and eval. by me. I agree with the A/P by the SLIP MIXER. The edema is improved. 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 She is now on po lasix. Chest is clear. RRR, Pacing frequently.
[2017-07-31] MEDS: Apixaban 5 MG TAB PO SCH (11:59)
[2017-07-31] MEDS: Carvedilol 3.125 MG TAB PO SCH ×2 (12:02→16:33)
[2017-07-31] MEDS: Spironolactone 25 MG TAB PO SCH (12:02)
[2017-07-31] MEDS: Docusate 100 MG CAP PO SCH (12:03)
--- NOTE | 2017-07-31 14:29 | PDOC.PN ---
- Subjective Encounter Start Date: 07/31/17 Encounter Start Time: 08:00 PATIENT IS seen today along with Cardiology HOST COORDINATOR, pt was alert and oriented, she was weak, and want to go home, Discussed with PT/OT, pt is not safe to go home. - Objective Resuscitation Status: Resuscitation Status FULL:Full Resuscitation MAR Reviewed: Yes Vital Signs & Weight: Vital Signs (12 hours) Temp Pulse Resp BP BP Pulse Ox 07/31/17 12:00 97.6 F 89 12 110/64 07/31/17 08:00 97.3 F L 92 16 116/76 07/31/17 04:00 97.3 F L 97 15 108/70 95 Weight Admit Weight 266 lb 14.4 oz Weight 260 lb 3.2 oz I&O: 07/30/17 07/31/17 08/01/17 06:59 06:59 06:59 Intake Total 2280 1310 Output Total 850 2150 Balance 1430 -840 Result Diagrams: 07/31/17 04:24 07/31/17 04:24 Radiology Reviewed by me: Yes Phys Exam - Physical Examination HEENT: PERRLA, moist MMs Neck: no nodes, no JVD Respiratory: no wheezing, no rales Cardiovascular: RRR, no significant murmur Gastrointestinal: soft, non-tender Musculoskeletal: edema present Neurological: non-focal, normal sensation Lymphatic: no nodes Psychiatric: normal affect, A&O x 3 Dx/Plan (1) Hyperkalemia Code(s): E87.5 - HYPERKALEMIA Status: Acute Comment: resolved (2) Pulmonary embolism Code(s): I26.99 - OTHER PULMONARY EMBOLISM WITHOUT ACUTE COR PULMONALE Status : Acute Comment: Intermediate probability from Vq mismatch on right lung, Pt is started on Eliquis 10mg po BID for 1 week and changed to 5mg PO BID.stbale. (3) AICD (automatic cardioverter/defibrillator) present Code(s): Z95.810 - PRESENCE OF AUTOMATIC (IMPLANTABLE) CARDIAC DEFIBRILLATOR Status: Acute Comment: Continue with lasix with aggresive diuresis. Will monitor Closely for decompensation. (4) FIDELIA (acute kidney injury) Code(s): N17.9 - ACUTE KIDNEY FAILURE, UNSPECIFIED Status: Acute Comment: Will cotninue with Duresis, avoid nephrotoxic meds. (5) Acute on chronic combined systolic and diastolic congestive heart failure Code(s): I50.43 - ACUTE ON CHRONIC COMBINED SYSTOLIC AND DIASTOLIC HRT FAIL Status: Acute Comment: Patient will need aggresive diuresis, due to her age and renal fucntions, will treat with lasix 40mg PO BID, showed some improveemnt in BNP, cardiology on Board. (6) HTN (hypertension) Code(s): I10 - ESSENTIAL (PRIMARY) HYPERTENSION Status: Chronic Qualifiers: Hypertension type: essential hypertension Qualified Code(s): I10 - Essential (primary) hypertension Comment: will controlled, added spironolactone. (7) Obesity (BMI 30-39.9) Code(s): E66.9 - OBESITY, UNSPECIFIED Status: Chronic - Plan cont current plan of care, PT/OT, social work associate, speech therapy, respiratory therapy, incentive spirometry, out of bed/ambulate, DVT proph w/lovenox * . Review of Systems - Review of Systems Constitutional: negative: fever, chills, sweats, weakness, malaise, other Eyes: negative: Pain, Vision Change, Conjunctivae Inflammation, Eyelid Inflammation, Redness, Other ENT: negative: Ear Pain, Ear Discharge, Nose Pain, Nose Discharge, Nose Congestion, Mouth Pain, Mouth Swelling, Throat Pain, Throat Swelling, Other Respiratory: negative: Cough, Dry, Shortness of Breath, Hemoptysis, SOB with Excertion, Pleuritic Pain, Sputum, Wheezing Cardiovascular: orthopnea, edema. negative: chest pain, palpitations, paroxysmal nocturnal dyspnea, light headedness, other Genitourinary: negative: Dysuria, Frequency, Incontinence, Hematuria, Retention , Other - Medications/Allergies Allergies/Adverse Reactions: Allergies Allergy/AdvReac Type Severity Reaction Status Date / Time lisinopril Allergy Mild Verified 07/28/17 18:34 losartan Allergy Verified 07/28/17 18:34 morphine Allergy Verified 07/28/17 18:34 Medications: Current Medications Acetaminophen (Tylenol) 650 mg PO Q4H PRN PRN Reason: Headache/Fever or Pain Hydrocodone Bitart/Acetaminophen ([place] 5/325) 1 tab PO Q4H PRN PRN Reason: Moderate Pain (4-6) Last Admin: 07/30/17 21:55 Dose: 1 tab Alprazolam (Xanax) 0.5 mg PO TID PRN PRN Reason: Anxiety Last Admin: 07/31/17 05:44 Dose: 0.5 mg Apixaban (Eliquis) 10 mg PO BID [facility] Stop: 08/05/17 21:01 Last Admin: 07/31/17 11:59 Dose: 10 mg Apixaban (Eliquis) 5 mg PO BID [facility] Aspirin (Aspirin Chewable) 81 mg PO DAILY [facility] Last Admin: 07/31/17 12:03 Dose: 81 mg Atorvastatin Calcium (Lipitor) 40 mg PO HS [facility] Last Admin: 07/30/17 21:55 Dose: 40 mg Bisacodyl (Dulcolax) 10 mg PO DAILYPRN PRN PRN Reason: Constipation Carvedilol (Coreg) 3.125 mg PO TID [facility] Last Admin: 07/31/17 12:02 Dose: 3.125 mg Docusate Sodium (Colace) 100 mg PO BID [facility] Last Admin: 07/31/17 12:03 Dose: 100 mg Famotidine (Pepcid) 20 mg PO 0900 [facility] Last Admin: 07/31/17 12:03 Dose: 20 mg Furosemide (Lasix) 40 mg PO 0600,1400 [facility] Last Admin: 07/31/17 05:44 Dose: 40 mg Ondansetron HCl (Zofran Odt) 4 mg PO Q6H PRN PRN Reason: Nausea/Vomiting Ondansetron HCl (Zofran) 4 mg IVP Q6H PRN PRN Reason: Nausea/Vomiting Spironolactone (Aldactone) 12.5 mg PO DAILY [facility] Last Admin: 07/31/17 12:02 Dose: 12.5 mg
[2017-07-31 16:32] VITALS: BP 105/64; TEMP 96.6
--- NOTE | 2017-08-03 09:44 | DIS ---
DATE OF ADMISSION: 07/28/2017 DATE OF DISCHARGE: 07/31/2017 ADMITTING DIAGNOSIS: Acute pulmonary embolism. DISCHARGE DIAGNOSIS: Acute pulmonary embolism. SECONDARY DIAGNOSES: 1. Acute congestive heart failure, likely diastolic dysfunction. 2. Atrial fibrillation. 3. History of hypertension. 4. History of morbid obesity. 5. Acute thrombocytopenia. 6. Acute kidney injury on chronic kidney disease stage 3. 7. Non-ST elevation myocardial infarction. CONSULTANTS INVOLVED IN THE CARE: Priya Limon M.D., from Cardiology. INVESTIGATIONS DURING THIS ADMISSION: V/Q scan showing evidence of right-sided lung mismatch suggest ghislaine of moderate probability of pulmonary embolism. HISTORY OF PRESENT ILLNESS AND HOSPITAL COURSE: In brief, this is an 86-year-old morbidly obese Af[place] female who lives with her daughter and for the past one week, she has been noticing wors ening shortness of breath and today she was unable to wake up from the bed and was extremely short of breath and called for EMS. When the EMS arrived, the patient was having low saturations and was adm itted to the hospital for possible CHF exacerbation. The patient was also complaining of itching thr oughout the body and more on the anterior part of the body. She does mention having dry skin. It wa s noted that she had elevated troponin with tachycardia. CT scan was not ordered because of the wors ening renal functions, so V/Q was ordered, which did reveal an evidence of moderate probability of PE . The patient was started on Eliquis initially with 10 mg p.o. b.i.d., which will be changed to 5 mg p.o. b.i.d. after discharge. The patient was closely monitored and was seen by Cardiology and was okay with the plan. The patient was started on Eliquis 10 mg p.o. b.i.d. as suggested above and optimized her home medications. The patient was evaluated by PT and OT and suggested for inpatient rehabilitation. The patient is disch arged to inpatient rehab in stable condition. PHYSICAL EXAMINATION: On the date of discharge, VITAL SIGNS: Blood pressures were 105/64, heart rate of 89, respiratory rate is 12, saturation is 98 % on 2 L nasal cannula. HEENT: Atraumatic, normocephalic. CARDIOVASCULAR: S1, S2 normal. No murmurs, rubs or gallops. LUNGS: Bilateral air entry was equal. Mild crackles were noted in the lower bases. ABDOMEN: Soft, nontender. No guarding or rebound tenderness. Bowel sounds normal. MUSCULOSKELETAL: No calf tenderness. No pedal edema. No joint tenderness. No joint swelling. DISCHARGE MEDICATIONS: 1. Aspirin 81 mg p.o. daily. 2. Xanax 0.5 mg 3 times a day as needed. 3. Spironolactone 25 mg p.o. daily. 4. Protonix 20 mg p.o. daily. 5. Zofran 8 mg q.8 hours. 6. Lasix 40 mg p.o. daily. 7. Atorvastatin 40 mg p.o. daily. 8. Coreg 6.25 mg p.o. daily. New medications are Eliquis 5 mg p.o. b.i.d. and Lasix 40 mg p.o. b.i.d. DISCHARGE INSTRUCTIONS: Continue activity as tolerated. Advised to follow up with primary care phys ician in 1-2 weeks. Advised to follow up with Cardiology in 1 week. The patient will follow up at i atient rehabilitation at this time. I spent 35 minutes with this patient on the day of discharge.
[2017-08-06] MEDS ORDERED: Apixaban 5 MG TAB PO SCH (09:00)
== END 2017-07-31 19:55 | DRG 291 ==
LOC: ERS 09:02 → ERHOLD 11:21 → 2NO 17:56
PROVIDERS: ADMIT Family Medicine; ATTEND Family Medicine
DX: I13.0 Hypertensive heart and chronic kidney disease with heart failure and stage 1 through stage 4 chronic kidney disease, or unspecified chronic kidney disease (principal); I26.99 Other pulmonary embolism without acute cor pulmonale; N17.9 Acute kidney failure, unspecified; D69.6 Thrombocytopenia, unspecified; E87.5 Hyperkalemia; E66.01 Morbid (severe) obesity due to excess calories; N18.3 Chronic kidney disease, stage 3 (moderate); I24.8 Other forms of acute ischemic heart disease; I50.43 Acute on chronic combined systolic (congestive) and diastolic (congestive) heart failure; Z68.41 Body mass index [BMI] 40.0-44.9, adult; I42.8 Other cardiomyopathies; I08.1 Rheumatic disorders of both mitral and tricuspid valves; I48.0 Paroxysmal atrial fibrillation; E78.5 Hyperlipidemia, unspecified; M19.90 Unspecified osteoarthritis, unspecified site; K21.9 Gastro-esophageal reflux disease without esophagitis; Z96.649 Presence of unspecified artificial hip joint; Z96.659 Presence of unspecified artificial knee joint; Z95.810 Presence of automatic (implantable) cardiac defibrillator; Z88.5 Allergy status to narcotic agent; Z88.8 Allergy status to other drugs, medicaments and biological substances; F41.9 Anxiety disorder, unspecified; Z85.3 Personal history of malignant neoplasm of breast; Z92.3 Personal history of irradiation; Z90.10 Acquired absence of unspecified breast and nipple; Z79.82 Long term (current) use of aspirin; Z79.01 Long term (current) use of anticoagulants; Z87.891 Personal history of nicotine dependence
CPT/HCPCS: 36415; 51702; 71045; 78582; 80048; 80053; 82553; 83880; 84484; 85007; 85025; 85027; 85379; 87086; 93005; 93306; 93798; 94760; 96374; 96375; A4216; A9540; A9558; G8978-GP-CL; G8979-GP-CK; G8987-GO-CL; G8988-GO-CJ; J1650; J1940; J2405; Q0162; S0028

== ENCOUNTER 2017-08-06 23:45 | Inpatient (IN) | payer MEDICARE, BC ==
[2017-08-07] MEDS ORDERED: Calcium Chloride 1 GM/10 ML Abboject SYRINGE ONE (00:05)
[2017-08-07] MEDS ORDERED: Ondansetron HCl/PF 4 MG/2 ML Vial ONE (00:51)
[2017-08-07 01:20] LABS: PTT 55.3 SEC (22.9-36.1)
[2017-08-07 01:21] LABS: INR-International Normal Ratio 3.8; Prothrombin Time 38.9 SEC (12.0-14.7)
[2017-08-07 02:00] LABS: Bilirubin Negative (Negative); Blood, Urine Negative (Negative); Clarity CLOUDY (Clear); Glucose, Urine (Dipstick) Negative (Negative); Leukocyte Negative (Negative); Nitrite Negative (Negative); Protein, Urine (Dipstick) 30 mg/dL (Neg-Trace); Specific Gravity, Urine 1.019 (1.002-1.036); pH, Urine 5.5 (5.0-9.0)
[2017-08-07] MEDS ORDERED: Piperacillin/Tazobactam 4.5 GM in Sodium Chloride 0.9% 100 ML IVPB SCH ×2 (02:00→12:00)
[2017-08-07 02:02] LABS: RBC/HPF 0-3 HPF (0-3)
[2017-08-07 02:16] LABS: Bacteria/HPF 4+ HPF (None Seen); Crystals/HPF None Seen HPF (Negative); Other Casts/LPF None Seen LPF (0-3 Hyaline); Renal Epithelial None Seen HPF (0-3); Transitional Epithelial NONE SEEN HPF (0-3); Yeast-All Forms None Seen HPF (None Seen)
[2017-08-07 02:22] LABS: CO2 Tension 30.1 mmHg (35.0-45.0); pH, Arterial 7.43 (7.35-7.45)
[2017-08-07 02:23] LABS: Actual Bicarbonate (HCO3a) 19.3 mEq/L (22-26); Analyzer IN Cardio ER; Base Excess (BEa) -4.1 mEq/L (0 (+/-) 2.5); Calcium, Ionized 1.3 mmol/L (1.12-1.30); Hematocrit-ABG 39.2 % (36.0-47.0); Hemoglobin (Hb) 11.4 g/dL (12.0-16.0); O2 Tension (PaO2) 322.4 mmHg (80.0-100.0); Puncture Site LRA
[2017-08-07 02:24] LABS: ALV-art Gradient 352.975 (0-20)
[2017-08-07 02:26] LABS: ALT (SGPT) 35 U/L (8-55); AST (SGOT) 63 U/L (5-34); Albumin 3.4 g/dL (3.4-4.8); Alkaline Phosphatase 124 U/L (40-150); Anion Gap 19 mmol/L (10-20); BUN (Urea Nitrogen) 47 mg/dL (9.8-20.1); Bilirubin, Total 2.8 mg/dL (0.2-1.2); CK (CPK) 88 U/L (29-168); Calc. Creatinine Clearance 0 mL/min (70-130); Carbon Dioxide 23 mmol/L (23-31); Chloride 99 mmol/L (98-107); Estimated GFR-MDRD 29; Globulin 3.5 g/dL (2.4-3.5); Glucose 113 mg/dL (83-110); Lipase 20 U/L (8-78); Potassium 4.4 mmol/L (3.5-5.1); Protein, Total 6.9 g/dL (6.0-8.3); Sodium 137 mmol/L (136-145)
[2017-08-07 02:31] LABS: CKMB 4.4 ng/mL (0-6.6)
[2017-08-07 02:32] LABS: #Lymphocytes 1.6 thou/uL (1.20-3.40); #Monocytes 0.4 thou/uL (0.11-0.59); #Neutrophils 3.1 thou/uL (1.40-6.50); %Basophils 0.4 % (0.0-1.0); %Eosinophils 0.7 % (0.0-10.0); %Lymphocytes 30.7 % (21.0-51.0); %Monocytes 7.4 % (0.0-10.0); %Neutrophils 60.8 % (42.0-75.0); Anisocytosis SLIGHT = 6-15 cells (100X) (0-5/hpf); Hemoglobin 12.3 g/dL (12.0-16.0); Large Platelets SLIGHT; MDiff Complete? YES; Mean Corpuscular HGB CONC 30.3 g/dL (32.0-36.0); Mean Corpuscular Volume 92.3 fl (81.0-99.0); Mean Platelet Volume 11.2 fL (7.4-10.4); PLT Morphology Comment Appears Decreased; Platelet Count 115 thou/uL (130-400); Polychromasia SLIGHT = 2-3 cells (100X) (0-2/hpf); RBC Distribution Width 21.9 % (11.5-14.5); Red Blood Cell (RBC) Count 4.39 mill/uL (4.20-5.40); White Blood Cell (WBC) Count 5.1 thou/uL (4.8-10.8)
[2017-08-07 03:16] LABS: Troponin I 0.369 ng/mL (< 0.028)
[2017-08-07] MEDS ORDERED: Dexamethasone 10 MG/ML VIAL ONE (03:31)
[2017-08-07] MEDS ORDERED: Amiodarone HCl 150 MG, Admixture Fee 1 EACH in Dextrose 5% in Water 100 ML IVPB SCH ×3 (03:45)
[2017-08-07] MEDS ORDERED: Amiodarone HCl 450 MG, Admixture Fee 1 EACH in Dextrose 5% in Water 250 ML IVPB SCH ×3 (03:45)
[2017-08-07] MEDS ORDERED: Sodium Chloride 0.9% 1,000 ML IV SCH (05:12)
[2017-08-07] MEDS ORDERED: Ondansetron HCl/PF 4 MG/2 ML Vial IVP PRN (05:12)
[2017-08-07] MEDS ORDERED: Ondansetron ODT 4 MG TAB SL PRN (05:12)
[2017-08-07] MEDS: Norepinephrine 8 MG/250 ML BAG IVPB PRN ×4 (05:37→09:28)
[2017-08-07] MEDS ORDERED: Vasopressin 40 UNIT, Admixture Fee 1 EACH in Sodium Chloride 0.9% 100 ML IV SCH (06:15)
--- NOTE | 2017-08-07 06:39 | HP ---
ADMITTING PHYSICIAN: Dr. Haile Worthington PRIMARY CARE PHYSICIAN: Dr. Goncalves CHIEF COMPLAINT: Evaluation of chest pain. HISTORY OF PRESENT ILLNESS: The patient is intubated for the interview. There is no family at the [facility]. The history I have is per the EMS and the emergency room faculty. According to our records the patient is an 86-year-old that was at [facility]. She had complained norah und 4:00 p.m. that she was not feeling well and experiencing some chest pain. She was given Zofran a nd she continued to deteriorate and was brought here to the ED. The patient reportedly was alert and oriented x2 to person before this episode. REVIEW OF SYSTEMS: The following complete review of systems was negative, unless otherwise mentioned in the HPI or below: Constitutional: Weight loss or gain, ability to conduct usual activities. Skin: Rash, itching. Eyes: Double vision, pain. ENT/Mouth: Nose bleeding, neck stiffness, pain, tenderness. Cardiovascular: Palpitations, dyspnea on exertion, orthopnea. Respiratory: Shortness of breath, wheezing, cough, hemoptysis, fever or night sweats. Gastrointestinal: Poor appetite, abdominal pain, heartburn, nausea, vomiting, constipation, or diarrhea. Genitourinary: Urgency, frequency, dysuria, nocturia. Musculoskeletal: Pain, swelling. Neurologic/Psychiatric: Anxiety, depression. Allergy/Immunologic: Skin rash, bleeding tendency. PAST MEDICAL HISTORY: Unable to obtain from patient, but from medical records, she has a history of atrial fibrillation, cardiomyopathy, congestive heart failure, hypertension, obesity PEs, COPD, GERD, osteoarthrosis, migraine headaches, coronary artery disease. PAST SURGICAL HISTORY: Per medical records includes mastectomy of the left breast, orthopedic surger y bilateral knee, left hip, cholecystectomy, hysterectomy, AICD placement. PSYCHIATRIC HISTORY: Includes anxiety. SOCIAL HISTORY: She drinks rarely. No drugs. Stopped smoking greater than 10 years ago. Lives at home with her grandson. FAMILY HISTORY: Unknown. HOME MEDICATIONS: Home medication per medical records include Lasix 40 mg twice a day, Zofran 4 mg 2 tabs as needed, carvedilol 3.125 mg 2 tablets b.i.d., Protonix 20 mg b.i.d., Aldactone 25 mg every d ay, Eliquis 5 mg b.i.d., atorvastatin 40 mg every day, Celexa 20 mg every day, and extra Tylenol. ALLERGIES: Include LISINOPRIL, LOSARTAN, MORPHINE. PHYSICAL EXAMINATION: VITAL SIGNS: On my physical the patient is intubated and sedated. Her pulse was 132, respirations 1 6, 100% on mechanical ventilation. She had a blood pressure at the time of 95/77 with a temperature of 97.7. GENERAL: The patient is sedated, unresponsive. HEENT: Normocephalic, atraumatic. Eyes; PERRL. Nose is externally normal. NECK: Trachea midline, endotracheal tube in place. CHEST: Symmetrical movement, no rhonchi auscultated. CARDIAC: Tachycardic, irregularly irregular. ABDOMEN: Obese, hypoactive bowel sounds. EXTREMITIES: No cyanosis, no clubbing and diffuse edema 3-4+. NEUROLOGIC: Once again the patient is obtunded and sedated. LABORATORY DATA: EKG showed nonspecific T-wave changes as well as a complete right bundle branch blo ck with left axis deviation with a ventricular rate of greater than 170. Chest x-ray shows severe ca rdiomegaly with mild pulmonary congestion and ET tube and OG tube in good position. CBC shows a whit e count of 5.1, hemoglobin 12.3, hematocrit 40.5, platelets 115, no left shift. Coagulation studies showed a PT of 38.9 with an INR of 3.8, PTT of 55.3. ABG shows a pH of 7.43, pCO2 of 30.1, pO2 of 32 2. Chemistry: Sodium 137, potassium 4.4, chloride 99, CO2 23, BUN 47, creatinine 2.0, glucose 113. Lactic acid 4.7, total bilirubin 2.8, AST 63, ALT 35, BNP 3147. Troponin I first round 0.369, secon d round of 0.57. TSH of 5.09. Urinalysis; yellow, cloudy, positive for protein, negative for nitrit es, negative for leukocyte esterase, 4+ urine bacteria. ASSESSMENT AND PLAN: 1. Undifferentiated shock. 2. Altered mental status. 3. Indeterminate tachyarrhythmia. 4. Elevated troponin. 5. Respiratory failure. PLAN: The patient admitted to CCU. She is on vasopressors including Levophed and Scott-Synephrine. W e will consult Pulmonary and Cardiology to assess the patient. The patient also is being mechanicall y ventilated at this time. Once again, we will defer to Pulmonary to manage her vent settings. The cause of the patient's deterioration is still unknown at this time, we will continue supportive measu res and request evaluation by the appropriate subspecialist.
--- NOTE | 2017-08-07 07:54 | RAD ---
PORTABLE CHEST 1 VIEW: DATE: 08/27/17. TIME: 1:02 a.m. HISTORY: Altered mental status. FINDINGS: Comparison is made with the exam of 07/28/17. The heart is enlarged. The aorta is tortuous. Left-sided AICD remains in place. Surgical clips in the right axilla are again noted. The lungs are expanded without confluent areas of consolidation, p neumothorax, irene pulmonary edema, or large effusions. POS: [facility]
--- NOTE | 2017-08-07 08:04 | RAD ---
PORTABLE CHEST 1 VIEW: Date: 08/07/17 Time: 0240 hours HISTORY: Chest pain. FINDINGS/IMPRESSION: Comparison made with earlier exam at 0102 hours from the same date. There has been interval placement of an endotracheal tube with tip below the level of the clavicular heads. Nasogastric tube can be traced into the stomach. No pneumothoraces seen. There is a mass-like prominence in the right hilar/infrahilar region. POS: [facility]
--- NOTE | 2017-08-07 08:11 | CON ---
DATE OF CONSULTATION: 08/07/2017 Thirty five minutes critical care time. REASON FOR CONSULTATION: Septic shock. HISTORY OF PRESENT ILLNESS: History is obtained by reading the records and the chart as the patient is intubated and cannot add to the history. This is an 86-year-old black female who apparently just got out of the hospital, she developed chest pain yesterday afternoon. She was apparently brought to the ER afterwards. I am not sure about the events that occurred there as the information in the [facility] rt is very sparse, it looks like she became hypotensive in the ER. Subsequently, developed septic sh ock, but there is little written down about the events that led to that. PAST MEDICAL HISTORY: 1. Atrial fibrillation. 2. Cardiomyopathy. 3. Congestive heart failure 4. Hypertension 5. Pulmonary embolism. 6. Chronic obstructive pulmonary disease. 7. Gastroesophageal reflux. 8. Migraines. 9. Coronary artery disease. PAST SURGICAL HISTORY: 1. Mastectomy, left breast. 2. Bilateral knee surgery. 3. Left hip replacement. 4. Cholecystectomy. 5. Hysterectomy. 6. AICD placement. PSYCHIATRIC HISTORY: Remarkable for anxiety. SOCIAL HISTORY: Apparently, does not drink, does not use illicit drugs. Quit smoking more than 10 y ears ago. FAMILY MEDICAL HISTORY: Unremarkable. MEDICATIONS PRIOR TO ADMISSION: Lasix, Zofran, carvedilol, Protonix, Aldactone, Eliquis, atorvastati n, Celexa. ALLERGIES: LISINOPRIL, LOSARTAN, MORPHINE. REVIEW OF SYSTEMS: Cannot be obtained as the patient is intubated on mechanical ventilation. PHYSICAL EXAMINATION: VITAL SIGNS: Her blood pressure could not be detected even though she is currently on 3 vasopressors including vasopressin, Scott-Synephrine and Levophed. Temperature is 95.7, pulse 98, O2 saturation 66 %. GENERAL: This is an elderly female who is obtunded and will not respond to any stimulation. HEENT: Pupils sluggishly reactive. Sclerae are anicteric. Oropharynx dry. NECK: No JVD. LUNGS: Clear breath sounds anteriorly. CARDIOVASCULAR: S1, S2 distant, barely audible. ABDOMEN: Soft. EXTREMITIES: She has a right femoral central line in place. Does not withdraw to any pain. SKIN: Shows no obvious lesions except for global edema throughout. X-RAY FINDINGS: Her chest x-ray shows cardiomegaly, question of a mass type density in the right hil ar area. She has a very prominent aortic bulb. LABORATORY DATA: White blood count 5.1, hematocrit 40, platelet count 115. INR is 3.8. PH this glen e is 7.1, but the pO2 is not detectable. Sodium 137, potassium 4.4, chloride 99, CO2 33, BUN 47, cre atinine 2.0. Lactate 4.7, troponin 5.7. TSH 5.09. ASSESSMENT: 1. Septic shock versus cardiogenic shock. 2. Hypotension refractory to vasopressors. 3. Possible cardiac event. RECOMMENDATIONS: In my opinion, the patient has a terminal condition which is refractory to medical therapy and she will from this illness. The daughter has been reached and has changed the patien t's code status to DNR. I would not titrate the vasopressor therapy any further. I have reviewed th e orders. She is on antibiotics, etc. Again, I do not think any of these interventions will be bene ficial to the patient as she will likely succumb very soon.
[2017-08-07 08:24] LABS: Actual Bicarbonate (HCO3a) 19.1 mEq/L (22-26); Base Excess (BEa) -9.1 mEq/L (0 (+/-) 2.5); CO2 Tension 51.1 mmHg (35.0-45.0); O2 Tension (PaO2) 19.2 mmHg (80.0-100.0); pH, Arterial 7.19 (7.35-7.45)
[2017-08-07 08:25] VITALS: TEMP 95.7
[2017-08-07 08:25] LABS: Hematocrit-ABG 43.9 % (36.0-47.0); Hemoglobin (Hb) 14.6 g/dL (12.0-16.0)
[2017-08-07 08:26] LABS: ALV-art Gradient 629.925 (0-20); Calcium, Ionized 1.2 mmol/L (1.12-1.30); Puncture Site RFA
[2017-08-07] MEDS ORDERED: Prevnar 13-Val Conj/PF 0.5 ML SYRINGE IM ONE (09:00)
[2017-08-07] MEDS ORDERED: Aspirin 325 MG TAB PO SCH (09:00)
[2017-08-07] MEDS ORDERED: FLU VACC TS2017-18 (>65YR) 0.5 ML SYRINGE IM ONE (09:00)
[2017-08-07] MEDS ORDERED: PHENYLEPHRINE HCL IVPB SCH (10:15)
[2017-08-07] MEDS ORDERED: SODIUM CHLORIDE 0.9% IVPB SCH (10:15)
[2017-08-07] MEDS ORDERED: Vancomycin HCl 1 GM in Premix Bag 1 BAG IVPB SCH (16:00)
--- NOTE | 2017-08-08 12:11 | EKG ---
Test Reason : Blood Pressure : / mmHG Vent. Rate : 132 BPM Atrial Rate : 132 BPM P-R Int : 192 ms QRS Dur : 004 ms QT Int : 198 ms P-R-T Axes : -36 000 062 degrees QTc Int : 293 ms Unusual P axis, possible ectopic atrial tachycardia Indeterminate axis Pulmonary disease pattern Nonspecific ST and T wave abnormality Abnormal ECG Confirmed by GILBERTO MORIN, MAT (12), content editor ASHWINI GLOVER ([id number]) on 08/08/2017 12:10:26 PM Referred By: GILBERTO Confirmed By:MAT MACIAS MD
--- NOTE | 2017-08-08 12:11 | EKG ---
Test Reason : Blood Pressure : / mmHG Vent. Rate : 135 BPM Atrial Rate : 135 BPM P-R Int : 088 ms QRS Dur : 148 ms QT Int : 382 ms P-R-T Axes : 000 -71 109 degrees QTc Int : 573 ms Sinus tachycardia with short MO Left axis deviation Non-specific intra-ventricular conduction block Inferior infarct , age undetermined Anterolateral infarct , age undetermined Abnormal ECG #2 Confirmed by GILBERTO MORIN, MAT (12), news video editor ASHWINI GLOVER ([id number]) on 08/08/2017 12:10:47 PM Referred By: Confirmed By:MAT MACIAS MD
--- NOTE | 2017-08-08 12:11 | EKG ---
Test Reason : Blood Pressure : / mmHG Vent. Rate : 094 BPM Atrial Rate : 094 BPM P-R Int : 000 ms QRS Dur : 150 ms QT Int : 432 ms P-R-T Axes : 029 -66 103 degrees QTc Int : 540 ms Normal sinus rhythm Left axis deviation Right bundle branch block Inferior infarct , age undetermined Anterolateral infarct , age undetermined Abnormal ECG #3 Confirmed by GILBERTO MORIN, MAT (12), editorial specialist ASHWINI GLOVER ([id number]) on 08/08/2017 12:10:56 PM Referred By: Confirmed By:MTA MACIAS MD
== END 2017-08-07 13:41 | disposition expired | DRG 871 ==
LOC: ERS 23:45 → CCU 08-07 03:19
PROVIDERS: ADMIT Internal Medicine Addiction Medicine; ATTEND Internal Medicine Addiction Medicine
PROC: 5A1935Z Respiratory Ventilation, Less than 24 Consecutive Hours (ICD-10-PCS; principal; 2017-08-07)
PROC: 0BH17EZ Insertion of Endotracheal Airway into Trachea, Via Natural or Artificial Opening (ICD-10-PCS; 2017-08-07)
PROC: 02HV33Z Insertion of Infusion Device into Superior Vena Cava, Percutaneous Approach (ICD-10-PCS; 2017-08-07)
DX: A41.9 Sepsis, unspecified organism (principal); J96.90 Respiratory failure, unspecified, unspecified whether with hypoxia or hypercapnia; R57.8 Other shock; I11.0 Hypertensive heart disease with heart failure; R65.21 Severe sepsis with septic shock; I42.9 Cardiomyopathy, unspecified; I48.91 Unspecified atrial fibrillation; I50.9 Heart failure, unspecified; L89.893 Pressure ulcer of other site, stage 3; J44.9 Chronic obstructive pulmonary disease, unspecified; K21.9 Gastro-esophageal reflux disease without esophagitis; M19.90 Unspecified osteoarthritis, unspecified site; I25.10 Atherosclerotic heart disease of native coronary artery without angina pectoris; Z95.810 Presence of automatic (implantable) cardiac defibrillator; Z87.891 Personal history of nicotine dependence; Z86.711 Personal history of pulmonary embolism; Z66 Do not resuscitate; Z85.3 Personal history of malignant neoplasm of breast; Z78.1 Physical restraint status; R41.82 Altered mental status, unspecified
CPT/HCPCS: 31500; 36556; 51702; 71045; 80053; 81003; 81015; 82550; 82553; 82805; 83605; 83690; 83880; 84443; 84484; 85025; 85610; 85730; 87077; 87086; 87186; 90471; 90670; 90682; 93005; 96361; 96365; 96366; 96367; 96368; 96375; 99292; A4353; G0008; G0009; J0282; J1100; J1956; J2370; J2405; J2543; J3370; J7050; J7070; Q2036